=== PATIENT | male | born 1935 | race Two or more races ===

== ENCOUNTER 2020-10-23 07:40 | Inpatient (IN) | payer MEDICARE, MEDICAID ==
[~2020-10-23] VITALS: Ht 160 cm; Wt 67.2 kg
[~2020-10-23 07:40] MED LIST: CARV12.544 PO; FINA5TAB4 PO; GLIM4TAB42 PO; SITA50TA PO; SUCR1TAB; TAMS0.4C36 PO
[2020-10-23] MEDS ORDERED: PIPERACILLIN-TAZOB 3.375GM 100 ML IV ONE (08:30)
[2020-10-23 09:00] LABS: Basophils # (auto) 0 10 ^3/uL (0-0.2); Basophils % (auto) 0.2 % (0.0-2.0); Eosinophils # (auto) 0 10 ^3/uL (0-0.8); Hematocrit 29.7 % (41.0-53.0); Hemoglobin 10.2 g/dL (13.5-17.5); Lymphocytes # (auto) 0.4 10 ^3/uL (0.4-5.4); Lymphocytes % (auto) 4.5 % (10.0-50.0); Mean Corpuscular Hgb Conc. 34.2 g/dL (32.0-36.0); Mean Corpuscular Volume 93.4 fL (80.0-100.0); Monocytes # (auto) 0.4 10 ^3/uL (0-1.3); Neutrophils # (auto) 8.3 10 ^3/uL (1.6-8.6); Neutrophils % (auto) 91.3 % (37.0-80.0); Red Blood Cells 3.18 10^6/uL (4.5-5.90); Red Cell Distribution Width 14.6 % (11.8-14.3)
[2020-10-23] MEDS ORDERED: ACETAMINOPHEN 325 MG TAB PO ONE (09:15)
[2020-10-23 09:18] LABS: Albumin 2.2 g/dL (3.4-5.0); Anion Gap 9 (5-15); Blood Urea Nitrogen 35 mg/dL (7-18); Calcium 7.8 mg/dL (8.5-10.1); Carbon Dioxide 26 mmol/L (21-32); Chloride 98 mmol/L (98-107); Glucose 165 mg/dL (74-106); Potassium 3.9 mmol/L (3.5-5.1); Sodium 133 mmol/L (136-145)
[2020-10-23] MEDS ORDERED: ONDANSETRON HCL 4 MG/2 ML VIAL ONE (09:27)
[2020-10-23 09:48] LABS: BUN/Creatinine Ratio 8.8; GFR African American 19 mL/min; GFR Non-African American 15 mL/min
[2020-10-23 09:49] LABS: Alanine Aminotransferase 16 U/L (16-61); Alkaline Phosphatase 111 U/L (45-117); Aspartate Aminotransferase 11 U/L (15-37); Bilirubin, Total 1.1 mg/dL (0.2-1.0); CRP High Sensitivity > 19.0 mg/dL (< 0.3); Total Protein 6.7 g/dL (6.4-8.2)
[2020-10-23] MEDS ORDERED: MORPHINE SULF INJ 2 MG/ML SYRINGE 1ML IV PRN (13:00)
[2020-10-23] MEDS ORDERED: NITROGLYCERIN 0.4 MG SL TAB SL PRN (13:00)
[2020-10-23] MEDS ORDERED: ACETAMINOPHEN 500 MG TAB PO PRN (13:00)
[2020-10-23] MEDS: metroNIDAZOLE 500MG/100ML 100 ML IV SCH ×2 (15:54→22:29)
[2020-10-23] MEDS: TAMSULOSIN HYDROCHLORIDE 0.4 MG CAP PO SCH (19:04)
[2020-10-23] MEDS: CARVEDILOL 12.5 MG TAB PO SCH (22:28)
[2020-10-23] MEDS ORDERED: cloNIDine HCL 0.1 MG TAB PO ONE (22:45)
[2020-10-23] MEDS: ONDANSETRON HCL 4 MG/2 ML VIAL IV PRN (23:29)
[2020-10-24] VITALS (23 sets, daily range): BP systolic 78–131; BP diastolic 41–59
[2020-10-24] MEDS: metroNIDAZOLE 500MG/100ML 100 ML IV SCH ×3 (05:32→22:43)
[2020-10-24 08:11] LABS: Basophils # (auto) 0 10 ^3/uL (0-0.2); Basophils % (auto) 0.5 % (0.0-2.0); Eosinophils # (auto) 0 10 ^3/uL (0-0.8); Eosinophils % (auto) 0.2 % (0.0-7.0); Hematocrit 25.4 % (41.0-53.0); Hemoglobin 8.9 g/dL (13.5-17.5); Lymphocytes # (auto) 0.5 10 ^3/uL (0.4-5.4); Lymphocytes % (auto) 8.4 % (10.0-50.0); Mean Corpuscular Hemoglobin 32.6 pg (28.0-32.0); Mean Corpuscular Hgb Conc. 34.9 g/dL (32.0-36.0); Mean Corpuscular Volume 93.3 fL (80.0-100.0); Monocytes # (auto) 0.4 10 ^3/uL (0-1.3); Monocytes % (auto) 5.7 % (0.0-12.0); Neutrophils # (auto) 5.3 10 ^3/uL (1.6-8.6); Neutrophils % (auto) 85.2 % (37.0-80.0); Red Blood Cells 2.73 10^6/uL (4.5-5.90); Red Cell Distribution Width 14.3 % (11.8-14.3); White Blood Cell 6.2 10^3/uL (4.4-10.8)
[2020-10-24] MEDS: ONDANSETRON HCL 4 MG/2 ML VIAL IV PRN (08:19)
[2020-10-24 08:21] LABS: Albumin 1.7 g/dL (3.4-5.0); Calcium 7.4 mg/dL (8.5-10.1); Potassium 4.1 mmol/L (3.5-5.1)
[2020-10-24 08:25] LABS: BUN/Creatinine Ratio 10.1; Bilirubin, Total 0.7 mg/dL (0.2-1.0)
[2020-10-24] MEDS ORDERED: cefTRIAXone 1GM/50ML D5W 50 ML IV SCH (09:00)
[2020-10-24] MEDS ORDERED: FINASTERIDE 5 MG TAB PO SCH (10:00)
[2020-10-24] MEDS: CARVEDILOL 12.5 MG TAB PO SCH (10:40)
[2020-10-24 11:52] LABS: Urine Bacteria NONE SEEN /hpf (None Seen); Urine Blood Negative /uL (Negative); Urine Specific Gravity 1.011 (1.001-1.035); Urine WBC 2 /hpf (0 - 3)
[2020-10-24] MEDS ORDERED: LORazepam 0.5 MG TAB PO PRN (13:30)
[2020-10-24] MEDS ORDERED: SODIUM CHLORIDE 0.9% 1,000 ML IV SCH (16:45)
[2020-10-24] MEDS ORDERED: PIPERACILLIN-TAZOB 2.25GM 50 ML IV ONE (17:00)
[2020-10-24] MEDS ORDERED: DEXTROSE (50%) 50ML SYRG IV PRN (17:00)
[2020-10-24] MEDS: SODIUM CHLORIDE 0.9% 1,000 ML IV SCH (17:36)
[2020-10-24] MEDS: TAMSULOSIN HYDROCHLORIDE 0.4 MG CAP PO SCH (18:00)
[2020-10-24] MEDS: ACCU-CHEK COMFORT CURVE STRIP VI SCH (18:00)
[2020-10-24] MEDS: InsuLIN REG 1unit/0.01ml Soln (100units/ml) SC SCH (18:00)
[2020-10-24 18:54] LABS: INR 1.91 (0.9-1.15)
[2020-10-24] MEDS ORDERED: NOREPINEPHRINE 8 MG/250ML KIT 250 ML IV ONE (19:08)
[2020-10-24] MEDS: PIPERACILLIN-TAZOB 2.25GM 50 ML IV SCH (22:44)
[2020-10-24] MEDS: NOREPINEPHRINE 8 MG/250ML KIT 250 ML IV SCH (23:15)
[2020-10-25] VITALS (81 sets, daily range): BP systolic 83–136; BP diastolic 38–57
[2020-10-25] MEDS: ACCU-CHEK COMFORT CURVE STRIP VI SCH ×4 (00:04→18:00)
[2020-10-25] MEDS: InsuLIN REG 1unit/0.01ml Soln (100units/ml) SC SCH ×5 (00:06→23:58)
[2020-10-25 04:47] LABS: Hematocrit 23.6 % (41.0-53.0); Hemoglobin 8.4 g/dL (13.5-17.5); Mean Corpuscular Hemoglobin 33.3 pg (28.0-32.0); Mean Corpuscular Hgb Conc. 35.7 g/dL (32.0-36.0); Mean Corpuscular Volume 93.5 fL (80.0-100.0); Red Blood Cells 2.52 10^6/uL (4.5-5.90); Red Cell Distribution Width 14.2 % (11.8-14.3); White Blood Cell 8.3 10^3/uL (4.4-10.8)
[2020-10-25 04:55] LABS: Basophils % (manual) 0 (0.0-2.0); Blast Cells 0; Eosinophils % (manual) 0 (0-7); Monocytes % (manual) 0 (0-12); Myelocytes % 0; Promyelocytes % 0; Reactive Lymphocytes 0
[2020-10-25 04:59] LABS: INR 1.98 (0.9-1.15)
[2020-10-25 05:02] LABS: Albumin 1.5 g/dL (3.4-5.0); Calcium 6.8 mg/dL (8.5-10.1); Magnesium 2.2 mg/dL (1.6-2.6); Potassium 3.7 mmol/L (3.5-5.1)
[2020-10-25 05:06] LABS: BUN/Creatinine Ratio 10.6; Bilirubin, Total 0.4 mg/dL (0.2-1.0); Total Protein 5.4 g/dL (6.4-8.2)
[2020-10-25] MEDS: metroNIDAZOLE 500MG/100ML 100 ML IV SCH (06:09)
[2020-10-25 06:47] LABS: Band Neutrophils % (manual) 32; Lymphocytes % (manual) 8 (10.0-50.0); Metamyelocytes % 1
[2020-10-25] MEDS: PIPERACILLIN-TAZOB 2.25GM 50 ML IV SCH ×2 (07:05→22:15)
[2020-10-25] MEDS ORDERED: PANTOPRAZOLE 40 MG/10 ML VIAL INJ IV ONE (12:30)
[2020-10-25] MEDS ORDERED: PHYTONADIONE (VIT K)10 MG/ML 1ML VIAL SUBCUT ONE (16:30)
[2020-10-25] MEDS: NOREPINEPHRINE 8 MG/250ML KIT 250 ML IV SCH (23:15)
[2020-10-26] VITALS (64 sets, daily range): BP systolic 90–174; BP diastolic 42–72
[2020-10-26] MEDS: ACCU-CHEK COMFORT CURVE STRIP VI SCH ×4 (00:10→18:00)
[2020-10-26 05:19] LABS: INR 1.99 (0.9-1.15); Partial Thromboplastin Time 50.7 sec (23.0-31.2)
[2020-10-26] MEDS: PIPERACILLIN-TAZOB 2.25GM 50 ML IV SCH ×3 (06:00→22:00)
[2020-10-26] MEDS: InsuLIN REG 1unit/0.01ml Soln (100units/ml) SC SCH ×3 (06:00→18:00)
[2020-10-26 06:53] LABS: BUN/Creatinine Ratio 10.9; Potassium 3.3 mmol/L (3.5-5.1)
[2020-10-26 08:49] LABS: INR 1.72 (0.9-1.15); Partial Thromboplastin Time 45.6 sec (23.0-31.2)
[2020-10-26] MEDS ORDERED: SODIUM CHL 0.9% 1000 ML BAG XX ONE (09:15)
[2020-10-26] MEDS: MORPHINE SULF INJ 2 MG/ML SYRINGE 1ML IV PRN ×2 (09:35→20:10)
[2020-10-26 09:42] LABS: Basophils # (auto) 0 10 ^3/uL (0-0.2); Basophils % (auto) 0.2 % (0.0-2.0); Eosinophils # (auto) 0 10 ^3/uL (0-0.8); Eosinophils % (auto) 0.7 % (0.0-7.0); Hematocrit 27.5 % (41.0-53.0); Hemoglobin 9.3 g/dL (13.5-17.5); Lymphocytes # (auto) 0.6 10 ^3/uL (0.4-5.4); Lymphocytes % (auto) 8.7 % (10.0-50.0); Mean Corpuscular Hemoglobin 31.5 pg (28.0-32.0); Mean Corpuscular Hgb Conc. 33.6 g/dL (32.0-36.0); Mean Corpuscular Volume 93.9 fL (80.0-100.0); Monocytes # (auto) 0.4 10 ^3/uL (0-1.3); Monocytes % (auto) 5.8 % (0.0-12.0); Neutrophils % (auto) 84.6 % (37.0-80.0); Red Blood Cells 2.93 10^6/uL (4.5-5.90); Red Cell Distribution Width 14.5 % (11.8-14.3); White Blood Cell 7.1 10^3/uL (4.4-10.8)
[2020-10-26] MEDS ORDERED: PHYTONADIONE (VIT K)10 MG/ML 1ML VIAL SUBCUT ONE ×2 (09:45)
[2020-10-26] MEDS: PANTOPRAZOLE 40 MG/10 ML VIAL INJ IV SCH (11:10)
[2020-10-26] MEDS: SODIUM CHLORIDE 0.9% 1,000 ML IV SCH ×3 (11:23→13:11)
[2020-10-26 15:34] LABS: INR 1.36 (0.9-1.15); Partial Thromboplastin Time 40.4 sec (23.0-31.2)
[2020-10-26] MEDS ORDERED: EPOETIN ALFA-EPBX 10,000 UNIT/1ML VIAL SC ONE (21:00)
[2020-10-26 21:33] LABS: INR 1.24 (0.9-1.15); Partial Thromboplastin Time 37.7 sec (23.0-31.2)
[2020-10-26] MEDS: NOREPINEPHRINE 8 MG/250ML KIT 250 ML IV SCH (23:15)
[2020-10-27] VITALS (36 sets, daily range): BP systolic 104–175; BP diastolic 52–69
[2020-10-27] MEDS: ACCU-CHEK COMFORT CURVE STRIP VI SCH ×4 (00:11→17:58)
[2020-10-27] MEDS: hydrALAZINE HCL 20 MG/ML VL IV PRN ×2 (02:11→14:21)
[2020-10-27 05:22] LABS: INR 1.18 (0.9-1.15)
[2020-10-27] MEDS: InsuLIN REG 1unit/0.01ml Soln (100units/ml) SC SCH ×4 (06:00→17:58)
[2020-10-27] MEDS: PIPERACILLIN-TAZOB 2.25GM 50 ML IV SCH ×3 (06:26→22:51)
[2020-10-27 07:09] LABS: Basophils # (auto) 0.1 10 ^3/uL (0-0.2); Basophils % (auto) 0.7 % (0.0-2.0); Eosinophils # (auto) 0 10 ^3/uL (0-0.8); Eosinophils % (auto) 0.3 % (0.0-7.0); Hematocrit 27.5 % (41.0-53.0); Hemoglobin 9.5 g/dL (13.5-17.5); Lymphocytes # (auto) 0.8 10 ^3/uL (0.4-5.4); Mean Corpuscular Hemoglobin 32.3 pg (28.0-32.0); Mean Corpuscular Hgb Conc. 34.6 g/dL (32.0-36.0); Mean Corpuscular Volume 93.2 fL (80.0-100.0); Monocytes # (auto) 0.4 10 ^3/uL (0-1.3); Neutrophils # (auto) 6.5 10 ^3/uL (1.6-8.6); Red Blood Cells 2.95 10^6/uL (4.5-5.90); Red Cell Distribution Width 14.7 % (11.8-14.3); White Blood Cell 7.7 10^3/uL (4.4-10.8)
[2020-10-27 07:34] LABS: Albumin 1.7 g/dL (3.4-5.0); Calcium 6.9 mg/dL (8.5-10.1)
[2020-10-27 07:38] LABS: BUN/Creatinine Ratio 8.1; Bilirubin, Total 0.5 mg/dL (0.2-1.0); Total Protein 5.9 g/dL (6.4-8.2)
[2020-10-27] MEDS: SODIUM CHLORIDE 0.9% 1,000 ML IV SCH (10:49)
[2020-10-27] MEDS: PANTOPRAZOLE 40 MG/10 ML VIAL INJ IV SCH (10:53)
[2020-10-27] MEDS: NOREPINEPHRINE 8 MG/250ML KIT 250 ML IV SCH (23:15)
[2020-10-28] VITALS (56 sets, daily range): BP systolic 87–180; BP diastolic 45–74
[2020-10-28] MEDS: ACCU-CHEK COMFORT CURVE STRIP VI SCH ×5 (00:12→23:54)
[2020-10-28] MEDS: InsuLIN REG 1unit/0.01ml Soln (100units/ml) SC SCH ×5 (00:14→23:54)
[2020-10-28 04:52] LABS: Basophils # (auto) 0.1 10 ^3/uL (0-0.2); Eosinophils # (auto) 0.1 10 ^3/uL (0-0.8); Eosinophils % (auto) 0.8 % (0.0-7.0); Hematocrit 26.1 % (41.0-53.0); Hemoglobin 8.8 g/dL (13.5-17.5); Lymphocytes # (auto) 0.8 10 ^3/uL (0.4-5.4); Lymphocytes % (auto) 11.5 % (10.0-50.0); Mean Corpuscular Hemoglobin 31.7 pg (28.0-32.0); Mean Corpuscular Hgb Conc. 33.7 g/dL (32.0-36.0); Mean Corpuscular Volume 94.2 fL (80.0-100.0); Monocytes # (auto) 0.4 10 ^3/uL (0-1.3); Monocytes % (auto) 5.7 % (0.0-12.0); Neutrophils # (auto) 5.5 10 ^3/uL (1.6-8.6); Red Blood Cells 2.78 10^6/uL (4.5-5.90); Red Cell Distribution Width 14.7 % (11.8-14.3); White Blood Cell 6.8 10^3/uL (4.4-10.8)
[2020-10-28 05:02] LABS: Albumin 1.5 g/dL (3.4-5.0); Calcium 6.8 mg/dL (8.5-10.1); Potassium 3.8 mmol/L (3.5-5.1)
[2020-10-28 05:05] LABS: Bilirubin, Total 0.4 mg/dL (0.2-1.0); Total Protein 5.8 g/dL (6.4-8.2)
[2020-10-28 05:09] LABS: INR 1.05 (0.9-1.15)
[2020-10-28] MEDS: PIPERACILLIN-TAZOB 2.25GM 50 ML IV SCH ×3 (05:43→23:54)
[2020-10-28] MEDS: SODIUM CHLORIDE 0.9% 1,000 ML IV SCH ×3 (06:34→12:35)
[2020-10-28] MEDS ORDERED: LIDOCAINE W/ EPINEPHRINE 1% 20ML VIAL ONE (07:39)
[2020-10-28] MEDS ORDERED: BUPIVACAINE 0.25% INJ 50ML VIAL ONE (07:39)
[2020-10-28] MEDS ORDERED: ceFAZolin 1GM/50ML 50 ML IV ONE (08:15)
[2020-10-28] MEDS ORDERED: SUCCINYLCHOLINE CHLORIDE 20 MG/ML 10ML VIAL IV ONE ×2 (08:17→08:27)
[2020-10-28] MEDS ORDERED: fentaNYL CITRATE 100 MCG/2 ML VL ONE (08:20)
[2020-10-28] MEDS ORDERED: ROCURONIUM 10MG/ML 10ML VIAL IV ONE (08:21)
[2020-10-28] MEDS: PANTOPRAZOLE 40 MG/10 ML VIAL INJ IV SCH (08:39)
[2020-10-28] MEDS ORDERED: ONDANSETRON HCL 4 MG/2 ML VIAL ONE (08:57)
[2020-10-28] MEDS ORDERED: PROPOFOL 10 MG/ML 20 ML IV ONE (08:57)
[2020-10-28] MEDS ORDERED: METOCLOPRAMIDE HCL 5MG/ml INJ 2ml VIAL ONE (08:57)
[2020-10-28] MEDS ORDERED: ceFAZolin 1GM VL ONE (09:23)
[2020-10-28] MEDS ORDERED: metroNIDAZOLE 500MG/100ML 100 ML IV ONE (09:23)
[2020-10-28] MEDS ORDERED: SUGAMMADEX 200mg/2ml Vial (100MG/ML) IV ONE ×2 (09:28→09:36)
[2020-10-28] MEDS ORDERED: ePHEDrine SULFATE 50 MG/ML AMP IV PRN (10:00)
[2020-10-28] MEDS ORDERED: MORPHINE SULFATE 4 MG/ML SYR/VIAL IV PRN ×2 (10:00)
[2020-10-28 10:41] LABS: Basophils # (auto) 0 10 ^3/uL (0-0.2); Basophils % (auto) 0.7 % (0.0-2.0); Eosinophils # (auto) 0 10 ^3/uL (0-0.8); Eosinophils % (auto) 0.5 % (0.0-7.0); Hematocrit 23.9 % (41.0-53.0); Hemoglobin 8.2 g/dL (13.5-17.5); Lymphocytes % (auto) 15.7 % (10.0-50.0); Mean Corpuscular Hemoglobin 32.3 pg (28.0-32.0); Mean Corpuscular Hgb Conc. 34.4 g/dL (32.0-36.0); Mean Corpuscular Volume 93.8 fL (80.0-100.0); Monocytes # (auto) 0.3 10 ^3/uL (0-1.3); Monocytes % (auto) 4.3 % (0.0-12.0); Neutrophils % (auto) 78.8 % (37.0-80.0); Red Blood Cells 2.55 10^6/uL (4.5-5.90); Red Cell Distribution Width 14.7 % (11.8-14.3); White Blood Cell 6.3 10^3/uL (4.4-10.8)
[2020-10-28] MEDS: NOREPINEPHRINE 8 MG/250ML KIT 250 ML IV SCH (13:00)
[2020-10-28] MEDS: HYDROcodone-ACET 5/325MG TAB PO PRN (13:54)
[2020-10-28] MEDS: MORPHINE SULF INJ 2 MG/ML SYRINGE 1ML IV PRN (23:55)
[2020-10-29] VITALS (88 sets, daily range): BP systolic 79–166; BP diastolic 41–82
[2020-10-29] MEDS: ONDANSETRON HCL 4 MG/2 ML VIAL IV PRN ×2 (02:31→08:40)
[2020-10-29] MEDS: InsuLIN REG 1unit/0.01ml Soln (100units/ml) SC SCH ×4 (06:00→23:53)
[2020-10-29] MEDS: PIPERACILLIN-TAZOB 2.25GM 50 ML IV SCH ×3 (06:26→22:00)
[2020-10-29] MEDS: ACCU-CHEK COMFORT CURVE STRIP VI SCH ×4 (06:26→23:53)
[2020-10-29] MEDS ORDERED: dilTIAZem 25 MG/5 ML VIAL IV ONE (07:00)
[2020-10-29 08:12] LABS: Eosinophils # (auto) 0 10 ^3/uL (0-0.8); Eosinophils % (auto) 0.1 % (0.0-7.0); Lymphocytes # (auto) 0.8 10 ^3/uL (0.4-5.4); Neutrophils # (auto) 12.7 10 ^3/uL (1.6-8.6); Neutrophils % (auto) 90.8 % (37.0-80.0)
[2020-10-29 08:14] LABS: Basophils # (auto) 0 10 ^3/uL (0-0.2); Basophils % (auto) 0.2 % (0.0-2.0); Hematocrit 24.2 % (41.0-53.0); Hemoglobin 8.2 g/dL (13.5-17.5); Lymphocytes % (auto) 5.8 % (10.0-50.0); Mean Corpuscular Hemoglobin 32.3 pg (28.0-32.0); Mean Corpuscular Hgb Conc. 33.7 g/dL (32.0-36.0); Mean Corpuscular Volume 95.8 fL (80.0-100.0); Monocytes # (auto) 0.4 10 ^3/uL (0-1.3); Monocytes % (auto) 3.1 % (0.0-12.0); Nucleated Red Blood Cells % 0.1 %; Red Blood Cells 2.53 10^6/uL (4.5-5.90); Red Cell Distribution Width 15.3 % (11.8-14.3)
[2020-10-29 08:27] LABS: Albumin 1.3 g/dL (3.4-5.0); Calcium 6.9 mg/dL (8.5-10.1); Potassium 3.9 mmol/L (3.5-5.1)
[2020-10-29 08:30] LABS: BUN/Creatinine Ratio 7.8; Bilirubin, Total 0.4 mg/dL (0.2-1.0); Total Protein 5.4 g/dL (6.4-8.2)
[2020-10-29] MEDS: MORPHINE SULF INJ 2 MG/ML SYRINGE 1ML IV PRN (08:41)
[2020-10-29] MEDS: PANTOPRAZOLE 40 MG/10 ML VIAL INJ IV SCH (10:00)
[2020-10-29] MEDS ORDERED: AMIODARONE HCL 150 MG in D5W 5% 100 ML IV ONE (10:30)
[2020-10-29] MEDS ORDERED: AMIODARONE 450mg/250ml AE 250 ML IV SCH ×2 (10:45→16:45)
[2020-10-29] MEDS: SODIUM CHLORIDE 0.9% 1,000 ML IV SCH (11:41)
[2020-10-29] MEDS: metroNIDAZOLE 500MG/100ML 100 ML IV SCH ×2 (12:00→20:00)
[2020-10-29] MEDS: NOREPINEPHRINE 8 MG/250ML KIT 250 ML IV SCH (23:15)
[2020-10-30] VITALS (50 sets, daily range): BP systolic 119–161; BP diastolic 51–79
[2020-10-30] MEDS: SODIUM CHLORIDE 0.9% 1,000 ML IV SCH (01:42)
[2020-10-30] MEDS: MORPHINE SULF INJ 2 MG/ML SYRINGE 1ML IV PRN ×2 (02:42→06:02)
[2020-10-30] MEDS: metroNIDAZOLE 500MG/100ML 100 ML IV SCH ×3 (04:20→20:04)
[2020-10-30 04:46] LABS: Basophils # (auto) 0 10 ^3/uL (0-0.2); Monocytes # (auto) 0.5 10 ^3/uL (0-1.3); Neutrophils # (auto) 10.4 10 ^3/uL (1.6-8.6); White Blood Cell 12.1 10^3/uL (4.4-10.8)
[2020-10-30 04:48] LABS: Basophils % (auto) 0.3 % (0.0-2.0); Eosinophils # (auto) 0.1 10 ^3/uL (0-0.8); Eosinophils % (auto) 0.5 % (0.0-7.0); Hematocrit 21.2 % (41.0-53.0); Hemoglobin 7.1 g/dL (13.5-17.5); Lymphocytes # (auto) 1.1 10 ^3/uL (0.4-5.4); Lymphocytes % (auto) 9.3 % (10.0-50.0); Mean Corpuscular Hemoglobin 32.4 pg (28.0-32.0); Mean Corpuscular Hgb Conc. 33.3 g/dL (32.0-36.0); Mean Corpuscular Volume 97.2 fL (80.0-100.0); Monocytes % (auto) 3.8 % (0.0-12.0); Neutrophils % (auto) 86.1 % (37.0-80.0); Red Blood Cells 2.18 10^6/uL (4.5-5.90); Red Cell Distribution Width 14.9 % (11.8-14.3)
[2020-10-30 05:12] LABS: Alanine Aminotransferase < 6 U/L (16-61); Albumin 1.4 g/dL (3.4-5.0); Anion Gap 8 (5-15); Aspartate Aminotransferase 9 U/L (15-37); BUN/Creatinine Ratio 7.5; Blood Urea Nitrogen 34 mg/dL (7-18); Calcium 7.2 mg/dL (8.5-10.1); Carbon Dioxide 22 mmol/L (21-32); Chloride 110 mmol/L (98-107); GFR African American 16 mL/min; GFR Non-African American 13 mL/min; Glucose 160 mg/dL (74-106); Potassium 3.9 mmol/L (3.5-5.1); Sodium 140 mmol/L (136-145)
[2020-10-30 05:15] LABS: Alkaline Phosphatase 119 U/L (45-117); Bilirubin, Total 0.3 mg/dL (0.2-1.0); Total Protein 5.2 g/dL (6.4-8.2)
[2020-10-30] MEDS: InsuLIN REG 1unit/0.01ml Soln (100units/ml) SC SCH ×3 (06:01→17:45)
[2020-10-30] MEDS: PIPERACILLIN-TAZOB 2.25GM 50 ML IV SCH ×3 (06:01→21:44)
[2020-10-30] MEDS: ACCU-CHEK COMFORT CURVE STRIP VI SCH ×3 (06:02→17:45)
[2020-10-30] MEDS: PANTOPRAZOLE 40 MG/10 ML VIAL INJ IV SCH (09:38)
[2020-10-30] MEDS: ONDANSETRON HCL 4 MG/2 ML VIAL IV PRN (09:39)
[2020-10-30] MEDS: AMIODARONE HCL 200 MG TAB PO SCH ×2 (09:40→21:45)
[2020-10-30] MEDS ORDERED: SODIUM CHLORIDE 0.9% 1,000 ML IV SCH (11:45)
[2020-10-30] MEDS ORDERED: ONDANSETRON HCL 4 MG/2 ML VIAL IV PRN (11:45)
[2020-10-30 12:48] LABS: INR 1.09 (0.9-1.15)
[2020-10-30] MEDS ORDERED: PROMETHAZINE HCL 25 MG/ML 1ML IV PRN ×2 (14:15→15:00)
[2020-10-30] MEDS ORDERED: WARFARIN SODIUM 5 MG TAB PO ONE (17:00)
[2020-10-30] MEDS: SUCRALFATE 1 GM TAB PO SCH ×2 (17:44→21:44)
[2020-10-31] MEDS: ACCU-CHEK COMFORT CURVE STRIP VI SCH ×4 (00:15→17:34)
[2020-10-31] MEDS: InsuLIN REG 1unit/0.01ml Soln (100units/ml) SC SCH ×4 (00:25→17:34)
[2020-10-31] MEDS: hydrALAZINE HCL 20 MG/ML VL IV PRN ×2 (00:53→21:40)
[2020-10-31] MEDS: metroNIDAZOLE 500MG/100ML 100 ML IV SCH (03:54)
[2020-10-31] MEDS: PIPERACILLIN-TAZOB 2.25GM 50 ML IV SCH (05:48)
[2020-10-31 05:53] VITALS: BP 157/89
[2020-10-31 06:37] LABS: Basophils # (auto) 0 10 ^3/uL (0-0.2); Basophils % (auto) 0.1 % (0.0-2.0); Eosinophils # (auto) 0.1 10 ^3/uL (0-0.8); Eosinophils % (auto) 0.7 % (0.0-7.0); Hemoglobin 7.1 g/dL (13.5-17.5); Lymphocytes # (auto) 0.6 10 ^3/uL (0.4-5.4); Neutrophils # (auto) 10.5 10 ^3/uL (1.6-8.6)
[2020-10-31 06:39] LABS: Hematocrit 21.1 % (41.0-53.0); Mean Corpuscular Hgb Conc. 33.6 g/dL (32.0-36.0); Monocytes # (auto) 0.2 10 ^3/uL (0-1.3); Monocytes % (auto) 2.2 % (0.0-12.0); Red Blood Cells 2.23 10^6/uL (4.5-5.90); Red Cell Distribution Width 15.2 % (11.8-14.3); White Blood Cell 11.4 10^3/uL (4.4-10.8)
[2020-10-31] MEDS: SUCRALFATE 1 GM TAB PO SCH ×4 (06:40→21:40)
[2020-10-31 06:56] LABS: Albumin 1.2 g/dL (3.4-5.0); Anion Gap 7 (5-15); Blood Urea Nitrogen 37 mg/dL (7-18); Calcium 7.1 mg/dL (8.5-10.1); Carbon Dioxide 21 mmol/L (21-32); Chloride 112 mmol/L (98-107); Glucose 121 mg/dL (74-106); Magnesium 2.4 mg/dL (1.6-2.6); Sodium 140 mmol/L (136-145)
[2020-10-31 07:00] LABS: Alanine Aminotransferase < 6 U/L (16-61); Alkaline Phosphatase 124 U/L (45-117); Aspartate Aminotransferase 9 U/L (15-37); BUN/Creatinine Ratio 7.6; Bilirubin, Total 0.3 mg/dL (0.2-1.0); GFR African American 15 mL/min; GFR Non-African American 12 mL/min; Total Protein 5.6 g/dL (6.4-8.2)
[2020-10-31] MEDS ORDERED: SODIUM CHL 0.9% 1000 ML BAG XX ONE (07:00)
[2020-10-31 08:51] LABS: INR 1.18 (0.9-1.15)
[2020-10-31 09:00] VITALS: BP 139/73
[2020-10-31] MEDS: PANTOPRAZOLE 40 MG/10 ML VIAL INJ IV SCH (09:47)
[2020-10-31] MEDS: AMIODARONE HCL 200 MG TAB PO SCH ×2 (09:47→21:41)
[2020-10-31] MEDS: ERTAPENEM SOD INJ 0.5 GM in SODIUM CHL 0.9% 50 ML IV SCH (10:32)
[2020-10-31] MEDS ORDERED: ALBUMIN 25% 100 ML IV ONE (11:00)
[2020-10-31] MEDS ORDERED: ALBUMIN 25% 50 ML IV ONE (11:30)
[2020-10-31 13:00] VITALS: BP 118/68
[2020-10-31 17:00] VITALS: BP 146/71
[2020-10-31] MEDS ORDERED: WARFARIN SODIUM 2 MG TAB PO ONE (17:00)
[2020-10-31] MEDS: TAMSULOSIN HYDROCHLORIDE 0.4 MG CAP PO SCH (17:34)
[2020-10-31] MEDS ORDERED: EPOETIN ALFA-EPBX 10,000 UNIT/1ML VIAL SC ONE (21:00)
[2020-10-31 22:00] VITALS: BP 181/77
[2020-11-01] MEDS: ACCU-CHEK COMFORT CURVE STRIP VI SCH ×4 (00:19→17:59)
[2020-11-01 05:00] VITALS: BP 152/71
[2020-11-01] MEDS: InsuLIN REG 1unit/0.01ml Soln (100units/ml) SC SCH ×4 (05:47→17:59)
[2020-11-01 06:26] LABS: INR 1.51 (0.9-1.15); Partial Thromboplastin Time 43.9 sec (23.0-31.2)
[2020-11-01] MEDS: SUCRALFATE 1 GM TAB PO SCH ×4 (06:51→21:54)
[2020-11-01 07:54] LABS: Basophils # (auto) 0 10 ^3/uL (0-0.2); Basophils % (auto) 0.1 % (0.0-2.0); Hemoglobin 7.2 g/dL (13.5-17.5); Monocytes # (auto) 0.3 10 ^3/uL (0-1.3); Neutrophils # (auto) 9.5 10 ^3/uL (1.6-8.6)
[2020-11-01 07:56] LABS: Eosinophils # (auto) 0.1 10 ^3/uL (0-0.8); Eosinophils % (auto) 0.6 % (0.0-7.0); Hematocrit 21.2 % (41.0-53.0); Lymphocytes # (auto) 0.7 10 ^3/uL (0.4-5.4); Lymphocytes % (auto) 6.6 % (10.0-50.0); Mean Corpuscular Hgb Conc. 33.8 g/dL (32.0-36.0); Mean Corpuscular Volume 94.7 fL (80.0-100.0); Neutrophils % (auto) 89.7 % (37.0-80.0); Red Blood Cells 2.24 10^6/uL (4.5-5.90); Red Cell Distribution Width 15.3 % (11.8-14.3); White Blood Cell 10.6 10^3/uL (4.4-10.8)
[2020-11-01] MEDS: hydrALAZINE HCL 20 MG/ML VL IV PRN (08:42)
[2020-11-01] MEDS: ERTAPENEM SOD INJ 0.5 GM in SODIUM CHL 0.9% 50 ML IV SCH (08:43)
[2020-11-01] MEDS: PANTOPRAZOLE 40 MG/10 ML VIAL INJ IV SCH (08:43)
[2020-11-01] MEDS: AMIODARONE HCL 200 MG TAB PO SCH ×2 (08:43→21:54)
[2020-11-01 09:00] VITALS: BP 180/76
[2020-11-01] MEDS ORDERED: CARVEDILOL 12.5 MG TAB PO ONE (12:00)
[2020-11-01 13:00] VITALS: BP 121/57
[2020-11-01 17:00] VITALS: BP 140/60
[2020-11-01] MEDS ORDERED: WARFARIN SODIUM 2.5 MG TAB PO ONE (17:00)
[2020-11-01] MEDS: TAMSULOSIN HYDROCHLORIDE 0.4 MG CAP PO SCH (17:58)
[2020-11-01] MEDS: CARVEDILOL 12.5 MG TAB PO SCH (21:55)
[2020-11-01 22:00] VITALS: BP 120/62
[2020-11-02] MEDS: ACCU-CHEK COMFORT CURVE STRIP VI SCH ×4 (00:21→17:28)
[2020-11-02 05:00] VITALS: BP 150/59
[2020-11-02 05:35] LABS: Basophils # (auto) 0 10 ^3/uL (0-0.2); Eosinophils # (auto) 0 10 ^3/uL (0-0.8); Eosinophils % (auto) 0.5 % (0.0-7.0); Lymphocytes # (auto) 0.7 10 ^3/uL (0.4-5.4); Monocytes # (auto) 0.3 10 ^3/uL (0-1.3); White Blood Cell 7.6 10^3/uL (4.4-10.8)
[2020-11-02 05:38] LABS: Basophils % (auto) 0.2 % (0.0-2.0); Hematocrit 19.7 % (41.0-53.0); Lymphocytes % (auto) 9.2 % (10.0-50.0); Mean Corpuscular Hemoglobin 32.8 pg (28.0-32.0); Mean Corpuscular Hgb Conc. 34.8 g/dL (32.0-36.0); Mean Corpuscular Volume 94.4 fL (80.0-100.0); Monocytes % (auto) 3.8 % (0.0-12.0); Neutrophils # (auto) 6.5 10 ^3/uL (1.6-8.6); Neutrophils % (auto) 86.3 % (37.0-80.0); Red Blood Cells 2.09 10^6/uL (4.5-5.90); Red Cell Distribution Width 15.2 % (11.8-14.3)
[2020-11-02 05:47] LABS: INR 2.22 (0.9-1.15)
[2020-11-02 05:53] LABS: BUN/Creatinine Ratio 6.8; Calcium 7.1 mg/dL (8.5-10.1); Potassium 3.6 mmol/L (3.5-5.1)
[2020-11-02] MEDS: InsuLIN REG 1unit/0.01ml Soln (100units/ml) SC SCH ×4 (06:00→18:00)
[2020-11-02 06:20] LABS: Hemoglobin 6.9 g/dL (13.5-17.5)
[2020-11-02] MEDS: SUCRALFATE 1 GM TAB PO SCH ×4 (07:00→22:00)
[2020-11-02] MEDS ORDERED: SODIUM CHL 0.9% 1000 ML BAG XX ONE (07:00)
[2020-11-02 09:00] VITALS: BP 130/58
[2020-11-02] MEDS: PANTOPRAZOLE 40 MG/10 ML VIAL INJ IV SCH (10:35)
[2020-11-02] MEDS: AMIODARONE HCL 200 MG TAB PO SCH ×2 (10:36→22:01)
[2020-11-02] MEDS: CARVEDILOL 12.5 MG TAB PO SCH ×2 (10:36→22:00)
[2020-11-02] MEDS: ERTAPENEM SOD INJ 0.5 GM in SODIUM CHL 0.9% 50 ML IV SCH (10:37)
[2020-11-02 11:55] LABS: Hemoglobin 7.1 g/dL (13.5-17.5)
[2020-11-02 11:58] LABS: Hematocrit 20.8 % (41.0-53.0)
[2020-11-02 12:58] VITALS: BP 126/53
[2020-11-02] MEDS ORDERED: REPA0.5T5 OR (14:00)
[2020-11-02] MEDS ORDERED: BUME1TAB3 PO (14:00)
[2020-11-02] MEDS ORDERED: WARF2.5T39 PO (14:00)
[2020-11-02] MEDS ORDERED: HYDR50TA15 PO (14:00)
[2020-11-02] MEDS ORDERED: CALC667C PO (14:00)
[2020-11-02] MEDS ORDERED: AMIO200T33 PO ×2 (14:00→14:25)
[2020-11-02] MEDS ORDERED: SITA50TA PO (14:00)
[2020-11-02] MEDS ORDERED: ALBUMIN 25% 100 ML IV ONE (14:15)
[2020-11-02] MEDS ORDERED: PANT40TA2 PO (14:25)
[2020-11-02 16:12] VITALS: BP 130/58
[2020-11-02] MEDS: ALBUMIN 25% 100 ML IV SCH ×2 (16:22→16:23)
[2020-11-02 17:00] VITALS: BP 142/56
[2020-11-02] MEDS ORDERED: WARFARIN SODIUM 1 MG TAB PO ONE (17:00)
[2020-11-02] MEDS: TAMSULOSIN HYDROCHLORIDE 0.4 MG CAP PO SCH (17:28)
[2020-11-02 22:00] VITALS: BP 157/55
[2020-11-03] VITALS (9 sets, daily range): BP systolic 119–153; BP diastolic 42–76
[2020-11-03] MEDS: ACCU-CHEK COMFORT CURVE STRIP VI SCH ×4 (00:01→18:00)
[2020-11-03] MEDS: InsuLIN REG 1unit/0.01ml Soln (100units/ml) SC SCH ×4 (00:02→18:45)
[2020-11-03] MEDS: SUCRALFATE 1 GM TAB PO SCH ×4 (06:29→22:51)
[2020-11-03] MEDS: PANTOPRAZOLE 40 MG/10 ML VIAL INJ IV SCH (10:01)
[2020-11-03] MEDS: CARVEDILOL 12.5 MG TAB PO SCH ×2 (10:02→22:51)
[2020-11-03] MEDS: AMIODARONE HCL 200 MG TAB PO SCH ×2 (10:02→22:00)
[2020-11-03 10:09] LABS: Basophils # (auto) 0 10 ^3/uL (0-0.2); Basophils % (auto) 0.1 % (0.0-2.0); Eosinophils # (auto) 0 10 ^3/uL (0-0.8); Lymphocytes # (auto) 0.7 10 ^3/uL (0.4-5.4); Mean Corpuscular Hemoglobin 32.8 pg (28.0-32.0); Monocytes # (auto) 0.3 10 ^3/uL (0-1.3); Red Blood Cells 1.98 10^6/uL (4.5-5.90)
[2020-11-03 10:12] LABS: Eosinophils % (auto) 0.5 % (0.0-7.0); Hematocrit 18.9 % (41.0-53.0); Lymphocytes % (auto) 9.5 % (10.0-50.0); Mean Corpuscular Hgb Conc. 34.4 g/dL (32.0-36.0); Mean Corpuscular Volume 95.4 fL (80.0-100.0); Monocytes % (auto) 3.7 % (0.0-12.0); Neutrophils # (auto) 6.6 10 ^3/uL (1.6-8.6); Neutrophils % (auto) 86.2 % (37.0-80.0); Red Cell Distribution Width 15.1 % (11.8-14.3); White Blood Cell 7.7 10^3/uL (4.4-10.8)
[2020-11-03 10:20] LABS: Hemoglobin 6.5 g/dL (13.5-17.5)
[2020-11-03 10:26] LABS: Albumin 2.3 g/dL (3.4-5.0)
[2020-11-03 10:30] LABS: INR 2.42 (0.9-1.15)
[2020-11-03 13:38] LABS: Hemoglobin 6.5 g/dL (13.5-17.5)
[2020-11-03] MEDS ORDERED: WARFARIN SODIUM 1 MG TAB PO ONE (17:00)
[2020-11-03] MEDS: TAMSULOSIN HYDROCHLORIDE 0.4 MG CAP PO SCH (19:01)
[2020-11-03] MEDS: HYDROcodone-ACET 5/325MG TAB PO PRN (20:00)
[2020-11-04 05:00] VITALS: BP 155/71
[2020-11-04] MEDS: InsuLIN REG 1unit/0.01ml Soln (100units/ml) SC SCH ×5 (06:00→23:16)
[2020-11-04] MEDS: ACCU-CHEK COMFORT CURVE STRIP VI SCH ×5 (06:00→23:15)
[2020-11-04] MEDS: SUCRALFATE 1 GM TAB PO SCH ×4 (06:54→21:36)
[2020-11-04 08:09] LABS: Basophils # (auto) 0 10 ^3/uL (0-0.2); Basophils % (auto) 0.2 % (0.0-2.0); Eosinophils # (auto) 0 10 ^3/uL (0-0.8); Eosinophils % (auto) 0.4 % (0.0-7.0); Hematocrit 26.4 % (41.0-53.0); Hemoglobin 9.1 g/dL (13.5-17.5); Lymphocytes # (auto) 0.9 10 ^3/uL (0.4-5.4); Lymphocytes % (auto) 11.9 % (10.0-50.0); Mean Corpuscular Hemoglobin 32.1 pg (28.0-32.0); Mean Corpuscular Hgb Conc. 34.5 g/dL (32.0-36.0); Mean Corpuscular Volume 92.8 fL (80.0-100.0); Monocytes # (auto) 0.3 10 ^3/uL (0-1.3); Monocytes % (auto) 4.2 % (0.0-12.0); Neutrophils # (auto) 6.4 10 ^3/uL (1.6-8.6); Neutrophils % (auto) 83.3 % (37.0-80.0); Red Blood Cells 2.85 10^6/uL (4.5-5.90); Red Cell Distribution Width 15.7 % (11.8-14.3); White Blood Cell 7.7 10^3/uL (4.4-10.8)
[2020-11-04 08:18] LABS: INR 2.49 (0.9-1.15)
[2020-11-04 08:27] LABS: Albumin 2.1 g/dL (3.4-5.0)
[2020-11-04 09:00] VITALS: BP 108/68
[2020-11-04] MEDS: ERTAPENEM SOD INJ 0.5 GM in SODIUM CHL 0.9% 50 ML IV SCH ×2 (10:00→10:40)
[2020-11-04] MEDS: PANTOPRAZOLE 40 MG/10 ML VIAL INJ IV SCH (10:03)
[2020-11-04] MEDS: AMIODARONE HCL 200 MG TAB PO SCH ×2 (10:04→21:37)
[2020-11-04] MEDS: CARVEDILOL 12.5 MG TAB PO SCH ×2 (10:13→21:38)
[2020-11-04 13:00] VITALS: BP 103/64
[2020-11-04] MEDS ORDERED: WARFARIN SODIUM 1 MG TAB PO ONE (17:00)
[2020-11-04 17:15] VITALS: BP 106/67
[2020-11-04] MEDS: TAMSULOSIN HYDROCHLORIDE 0.4 MG CAP PO SCH (17:26)
[2020-11-04] MEDS ORDERED: EPOETIN ALFA-EPBX 10,000 UNIT/1ML VIAL IV ONE (21:00)
[2020-11-05 05:00] VITALS: BP 140/70
[2020-11-05 05:55] LABS: INR 2.32 (0.9-1.15); Partial Thromboplastin Time 52.1 sec (23.6-33.0)
[2020-11-05] MEDS: ACCU-CHEK COMFORT CURVE STRIP VI SCH ×3 (06:08→17:40)
[2020-11-05] MEDS: InsuLIN REG 1unit/0.01ml Soln (100units/ml) SC SCH ×3 (06:09→17:41)
[2020-11-05] MEDS: SUCRALFATE 1 GM TAB PO SCH ×4 (06:09→22:41)
[2020-11-05 09:00] VITALS: BP 113/43
[2020-11-05 09:10] LABS: Hematocrit 27.6 % (41.0-53.0); Hemoglobin 8.8 g/dL (13.5-17.5)
[2020-11-05] MEDS: PANTOPRAZOLE 40 MG/10 ML VIAL INJ IV SCH (10:11)
[2020-11-05] MEDS: CARVEDILOL 12.5 MG TAB PO SCH ×2 (10:14→22:00)
[2020-11-05] MEDS: AMIODARONE HCL 200 MG TAB PO SCH ×2 (10:15→22:00)
[2020-11-05] MEDS: ERTAPENEM SOD INJ 0.5 GM in SODIUM CHL 0.9% 50 ML IV SCH (10:15)
[2020-11-05 13:00] VITALS: BP 123/51
[2020-11-05 17:00] VITALS: BP 132/92
[2020-11-05] MEDS ORDERED: WARFARIN SODIUM 1 MG TAB PO ONE (17:00)
[2020-11-05] MEDS: TAMSULOSIN HYDROCHLORIDE 0.4 MG CAP PO SCH (17:26)
[2020-11-05 22:00] VITALS: BP 126/58
[2020-11-05] MEDS ORDERED: LORazepam 2MG/ML-1ML VIAL IV PRN (22:15)
[2020-11-06] MEDS: ACCU-CHEK COMFORT CURVE STRIP VI SCH ×4 (00:41→17:44)
[2020-11-06] MEDS: InsuLIN REG 1unit/0.01ml Soln (100units/ml) SC SCH ×4 (00:42→17:45)
[2020-11-06 05:00] VITALS: BP 144/108
[2020-11-06 05:54] LABS: Basophils # (auto) 0 10 ^3/uL (0-0.2); Basophils % (auto) 0.4 % (0.0-2.0); Eosinophils # (auto) 0 10 ^3/uL (0-0.8); Eosinophils % (auto) 0.6 % (0.0-7.0); Hematocrit 26.1 % (41.0-53.0); Hemoglobin 8.9 g/dL (13.5-17.5); Lymphocytes # (auto) 0.9 10 ^3/uL (0.4-5.4); Lymphocytes % (auto) 14.8 % (10.0-50.0); Mean Corpuscular Hemoglobin 31.5 pg (28.0-32.0); Mean Corpuscular Volume 92.8 fL (80.0-100.0); Monocytes # (auto) 0.3 10 ^3/uL (0-1.3); Neutrophils # (auto) 4.7 10 ^3/uL (1.6-8.6); Neutrophils % (auto) 79.2 % (37.0-80.0); Nucleated Red Blood Cells % 0.1 %; Red Blood Cells 2.81 10^6/uL (4.5-5.90); Red Cell Distribution Width 15.6 % (11.8-14.3); White Blood Cell 5.9 10^3/uL (4.4-10.8)
[2020-11-06] MEDS: SUCRALFATE 1 GM TAB PO SCH ×3 (06:06→17:00)
[2020-11-06 06:15] LABS: INR 2.34 (0.9-1.15)
[2020-11-06 06:24] LABS: Potassium 4.2 mmol/L (3.5-5.1)
[2020-11-06 06:39] LABS: Albumin 1.8 g/dL (3.4-5.0); BUN/Creatinine Ratio 5.3; Calcium 7.3 mg/dL (8.5-10.1)
[2020-11-06 06:42] LABS: Bilirubin, Total 0.3 mg/dL (0.2-1.0); Total Protein 5.9 g/dL (6.4-8.2)
[2020-11-06 09:00] VITALS: BP 144/60
[2020-11-06] MEDS: ERTAPENEM SOD INJ 0.5 GM in SODIUM CHL 0.9% 50 ML IV SCH (09:40)
[2020-11-06] MEDS: PANTOPRAZOLE 40 MG/10 ML VIAL INJ IV SCH (09:40)
[2020-11-06] MEDS: CARVEDILOL 12.5 MG TAB PO SCH (09:41)
[2020-11-06] MEDS: AMIODARONE HCL 200 MG TAB PO SCH (09:41)
[2020-11-06 12:51] VITALS: BP 139/61
[2020-11-06 16:59] VITALS: BP 128/62
[2020-11-06] MEDS ORDERED: WARFARIN SODIUM 1 MG TAB PO ONE (17:00)
[2020-11-06] MEDS: TAMSULOSIN HYDROCHLORIDE 0.4 MG CAP PO SCH (17:45)
[2020-11-07] MEDS ORDERED: SODIUM CHL 0.9% 1000 ML BAG XX ONE (07:00)
[2020-11-07] MEDS ORDERED: EPOETIN ALFA-EPBX 4,000 UNIT/ML VIAL SC ONE (21:00)
== END 2020-11-06 20:56 | disposition home health service (06) | DRG 710 ==
LOC: EDUNIT# 07:40 → EDBD 07:40 → ER 07:40 → TELE 12:52 → TELE-WESTW 10-24 15:49 → DOU IN ICU 10-24 20:15 → TELE-WESTW 10-30 14:42
PROVIDERS: ADMIT Nurse Practitioner Acute Care; ATTEND Internal Medicine
PROC: 5A1D70Z Performance of Urinary Filtration, Intermittent, Less than 6 Hours Per Day (ICD-10-PCS; 2020-10-26)
PROC: 0FT44ZZ Resection of Gallbladder, Percutaneous Endoscopic Approach (ICD-10-PCS; principal; 2020-10-28 08:19)
PROC: 05HF33Z Insertion of Infusion Device into Left Cephalic Vein, Percutaneous Approach (ICD-10-PCS; 2020-10-31)
PROC: B54NZZA Ultrasonography of Left Upper Extremity Veins, Guidance (ICD-10-PCS; 2020-10-31)
PROC: 5A1D70Z Performance of Urinary Filtration, Intermittent, Less than 6 Hours Per Day (ICD-10-PCS; 2020-10-31)
PROC: 5A1D70Z Performance of Urinary Filtration, Intermittent, Less than 6 Hours Per Day (ICD-10-PCS; 2020-11-02)
PROC: 30233N1 Transfusion of Nonautologous Red Blood Cells into Peripheral Vein, Percutaneous Approach (ICD-10-PCS; 2020-11-03)
PROC: 5A1D70Z Performance of Urinary Filtration, Intermittent, Less than 6 Hours Per Day (ICD-10-PCS; 2020-11-04)
DX: A41.9 Sepsis, unspecified organism (principal); J96.01 Acute respiratory failure with hypoxia; J91.8 Pleural effusion in other conditions classified elsewhere; I21.A1 Myocardial infarction type 2; J18.9 Pneumonia, unspecified organism; E44.0 Moderate protein-calorie malnutrition; D68.69 Other thrombophilia; K80.00 Calculus of gallbladder with acute cholecystitis without obstruction; D63.1 Anemia in chronic kidney disease; I13.2 Hypertensive heart and chronic kidney disease with heart failure and with stage 5 chronic kidney disease, or end stage renal disease; E11.21 Type 2 diabetes mellitus with diabetic nephropathy; I48.0 Paroxysmal atrial fibrillation; I50.42 Chronic combined systolic (congestive) and diastolic (congestive) heart failure; N18.6 End stage renal disease; E87.6 Hypokalemia; E86.9 Volume depletion, unspecified; K21.9 Gastro-esophageal reflux disease without esophagitis; E78.00 Pure hypercholesterolemia, unspecified; B96.20 Unspecified Escherichia coli [E. coli] as the cause of diseases classified elsewhere; Z16.12 Extended spectrum beta lactamase (ESBL) resistance; R18.8 Other ascites; T45.515A Adverse effect of anticoagulants, initial encounter; E11.22 Type 2 diabetes mellitus with diabetic chronic kidney disease; Z20.822 Contact with and (suspected) exposure to COVID-19; Z99.2 Dependence on renal dialysis; Z68.30 Body mass index [BMI] 30.0-30.9, adult; Y92.89 Other specified places as the place of occurrence of the external cause
CPT/HCPCS: 36415; 36600; 70551; 71045; 71250; 74176; 76705; 80048; 80053; 81001; 82040; 82247; 82565; 82728; 82805; 82962; 83036; 83605; 83735; 83880; 84484; 85007; 85014; 85018; 85025; 85027; 85610; 85730; 86141; 86850; 86900; 86901; 86920; 87040; 87070; 87075; 87077; 87081; 87186; 87205; 87340; 87426; 87493; 90935; 93005; 93971; 95819; 96365; 96366; 96367; 96375; 97110; 97116; 97163; 97530; C9113; G0378; J0330; J0690; J0696; J1335; J1642; J1815; J2405; J2543; J2704; J3430; J3490; J7060; P9047

== ENCOUNTER 2020-11-10 18:24 | Inpatient (IN) | payer MEDICARE, MEDICAID ==
[~2020-11-10] VITALS: Ht 165.1 cm; Wt 63.7 kg
[~2020-11-10 18:24] MED LIST changes: +AMIO200T33 PO; +BUME1TAB3 PO; +CALC667C PO; +HYDR50TA15 PO; +PANT40TA2 PO; +REPA0.5T5 OR; +WARF2.5T39 PO
[2020-11-10 20:36] LABS: Basophils # (auto) 0 10 ^3/uL (0-0.2); Basophils % (auto) 0.4 % (0.0-2.0); Eosinophils # (auto) 0 10 ^3/uL (0-0.8); Eosinophils % (auto) 0.2 % (0.0-7.0); Hematocrit 27.8 % (41.0-53.0); Hemoglobin 9.6 g/dL (13.5-17.5); Lymphocytes # (auto) 0.7 10 ^3/uL (0.4-5.4); Lymphocytes % (auto) 12.7 % (10.0-50.0); Mean Corpuscular Hemoglobin 32.2 pg (28.0-32.0); Mean Corpuscular Hgb Conc. 34.4 g/dL (32.0-36.0); Mean Corpuscular Volume 93.6 fL (80.0-100.0); Monocytes # (auto) 0.3 10 ^3/uL (0-1.3); Monocytes % (auto) 4.7 % (0.0-12.0); Neutrophils # (auto) 4.6 10 ^3/uL (1.6-8.6); Nucleated Red Blood Cells % 0.1 %; Red Blood Cells 2.97 10^6/uL (4.5-5.90); Red Cell Distribution Width 15.8 % (11.8-14.3); White Blood Cell 5.7 10^3/uL (4.4-10.8)
[2020-11-10 20:43] LABS: Albumin 1.9 g/dL (3.4-5.0); Anion Gap 7 (5-15); Blood Urea Nitrogen 28 mg/dL (7-18); Calcium 7.5 mg/dL (8.5-10.1); Carbon Dioxide 28 mmol/L (21-32); Chloride 105 mmol/L (98-107); Glucose 174 mg/dL (74-106); Magnesium 2.1 mg/dL (1.6-2.6); Potassium 3.7 mmol/L (3.5-5.1); Sodium 140 mmol/L (136-145)
[2020-11-10 20:45] LABS: BUN/Creatinine Ratio 8.2; GFR African American 22 mL/min; GFR Non-African American 18 mL/min
[2020-11-10 20:50] LABS: Alanine Aminotransferase 8 U/L (16-61); Alkaline Phosphatase 132 U/L (45-117); Aspartate Aminotransferase 14 U/L (15-37); Bilirubin, Total 0.3 mg/dL (0.2-1.0); Total Protein 6.5 g/dL (6.4-8.2)
[2020-11-10 22:52] LABS: Urine Bacteria FEW /hpf (None Seen); Urine Blood TRACE /uL (Negative); Urine Budding Yeast FEW /hpf (None Seen); Urine Specific Gravity 1.008 (1.001-1.035); Urine WBC 127 /hpf (0 - 3); Urine WBC Clumps PRESENT /hpf (None Seen)
[2020-11-10] MEDS ORDERED: DOCUSATE SOD 100 MG CAP PO PRN (23:30)
[2020-11-10] MEDS ORDERED: ACETAMINOPHEN 325 MG TAB PO PRN (23:30)
[2020-11-10] MEDS ORDERED: ONDANSETRON HCL 4 MG/2 ML VIAL IV PRN (23:30)
[2020-11-10] MEDS ORDERED: DEXTROSE (50%) 50ML SYRG IV PRN (23:30)
[2020-11-10] MEDS ORDERED: NITROGLYCERIN 0.4 MG SL TAB SL PRN (23:30)
[2020-11-10] MEDS ORDERED: cloNIDine HCL 0.1 MG TAB PO PRN (23:30)
[2020-11-10] MEDS ORDERED: MORPHINE SULFATE INJECTION 2 MG/ML SYRG IV PRN (23:30)
[2020-11-10] MEDS ORDERED: FUROSEMIDE 40 MG/4 ML VIAL IV ONE (23:30)
[2020-11-10] MEDS ORDERED: ALBUMIN 25% 50 ML IV ONE (23:30)
[2020-11-11] VITALS (7 sets, daily range): BP systolic 142–154; BP diastolic 64–75
[2020-11-11] MEDS ORDERED: hydrALAZINE HCL 20 MG/ML VL ONE (01:52)
[2020-11-11] MEDS: hydrALAZINE HCL 20 MG/ML VL IV PRN (02:06)
[2020-11-11] MEDS: SODIUM CHLOR 0.9% PF (SALINE LOCK) 10ML VIAL/SYR IV SCH ×3 (05:42→21:07)
[2020-11-11 06:10] LABS: Basophils # (auto) 0 10 ^3/uL (0-0.2); Basophils % (auto) 0.5 % (0.0-2.0); Eosinophils # (auto) 0 10 ^3/uL (0-0.8); Eosinophils % (auto) 0.3 % (0.0-7.0); Hematocrit 26.8 % (41.0-53.0); Hemoglobin 9.2 g/dL (13.5-17.5); Lymphocytes % (auto) 17.8 % (10.0-50.0); Mean Corpuscular Hemoglobin 32.3 pg (28.0-32.0); Mean Corpuscular Hgb Conc. 34.5 g/dL (32.0-36.0); Mean Corpuscular Volume 93.9 fL (80.0-100.0); Monocytes # (auto) 0.3 10 ^3/uL (0-1.3); Monocytes % (auto) 5.9 % (0.0-12.0); Neutrophils % (auto) 75.5 % (37.0-80.0); Nucleated Red Blood Cells % 0.1 %; Red Blood Cells 2.86 10^6/uL (4.5-5.90); Red Cell Distribution Width 15.4 % (11.8-14.3); White Blood Cell 5.4 10^3/uL (4.4-10.8)
[2020-11-11 06:51] LABS: Calcium 7.7 mg/dL (8.5-10.1); Potassium 3.9 mmol/L (3.5-5.1)
[2020-11-11 06:54] LABS: BUN/Creatinine Ratio 8.6; Bilirubin, Total 0.4 mg/dL (0.2-1.0); Total Protein 6.7 g/dL (6.4-8.2)
[2020-11-11] MEDS: InsuLIN REG 1unit/0.01ml Soln (100units/ml) SC SCH ×4 (06:54→22:07)
[2020-11-11] MEDS: ACCU-CHEK COMFORT CURVE STRIP VI SCH ×4 (06:54→22:06)
[2020-11-11] MEDS: ASCORBIC ACID 500 MG TAB PO SCH ×2 (10:15→21:07)
[2020-11-11] MEDS: ZINC SULFATE 220mg CAP or TAB PO SCH (10:15)
[2020-11-11] MEDS: MULTIPLE VITAMIN TAB PO SCH (10:15)
[2020-11-11] MEDS: FAMOTIDINE (10MG/ML) 2ML VL IV SCH (10:15)
[2020-11-11] MEDS: cefTRIAXone 1GM/50ML D5W 50 ML IV SCH (10:16)
[2020-11-11] MEDS: AZITHROMYCIN 500MG/ 250ML 250 ML IV SCH (10:16)
[2020-11-11] MEDS: FUROSEMIDE 40 MG/4 ML VIAL IV SCH (10:17)
[2020-11-11] MEDS: CARVEDILOL 12.5 MG TAB PO SCH ×2 (10:17→21:42)
[2020-11-11] MEDS: HEPARIN SODIUM (PORCINE) 5000 UNITS/ML 1ML VIAL SC SCH ×2 (10:18→21:41)
[2020-11-11] MEDS: TAMSULOSIN HYDROCHLORIDE 0.4 MG CAP PO SCH (18:16)
[2020-11-11] MEDS: Glucerna Carbsteady SHAKE Vanilla 8oz PO SCH ×2 (18:16→21:07)
[2020-11-11] MEDS: IPRATROPIUM BROM 0.5 MG/2.5ML INH SOL NEB PRN (23:04)
[2020-11-11] MEDS: ALBUTEROL SULF 2.5 MG/0.5ML(0.5%) NEB SOLN NEB PRN (23:05)
[2020-11-12 02:46] VITALS: BP 154/74
[2020-11-12 05:00] VITALS: BP 155/75
[2020-11-12] MEDS: Glucerna Carbsteady SHAKE Vanilla 8oz PO SCH ×4 (06:30→22:00)
[2020-11-12] MEDS: ACCU-CHEK COMFORT CURVE STRIP VI SCH ×4 (06:30→22:04)
[2020-11-12] MEDS: InsuLIN REG 1unit/0.01ml Soln (100units/ml) SC SCH ×4 (06:33→22:06)
[2020-11-12] MEDS: ALBUTEROL SULF 2.5 MG/0.5ML(0.5%) NEB SOLN NEB PRN (06:34)
[2020-11-12] MEDS: IPRATROPIUM BROM 0.5 MG/2.5ML INH SOL NEB PRN (06:34)
[2020-11-12] MEDS: SODIUM CHLOR 0.9% PF (SALINE LOCK) 10ML VIAL/SYR IV SCH ×3 (06:34→22:00)
[2020-11-12 09:00] VITALS: BP 167/89
[2020-11-12] MEDS ORDERED: HEPARIN 1,000 UNITS/ml 1ML VIAL IV ONE (10:30)
[2020-11-12] MEDS: cefTRIAXone 1GM/50ML D5W 50 ML IV SCH (11:02)
[2020-11-12] MEDS: FAMOTIDINE (10MG/ML) 2ML VL IV SCH (11:10)
[2020-11-12] MEDS: FUROSEMIDE 40 MG/4 ML VIAL IV SCH (11:10)
[2020-11-12] MEDS: ASCORBIC ACID 500 MG TAB PO SCH ×2 (11:15→21:32)
[2020-11-12] MEDS: MULTIPLE VITAMIN TAB PO SCH (11:15)
[2020-11-12] MEDS: ZINC SULFATE 220mg CAP or TAB PO SCH (11:15)
[2020-11-12] MEDS: CARVEDILOL 12.5 MG TAB PO SCH ×2 (11:15→21:32)
[2020-11-12] MEDS: HEPARIN SODIUM (PORCINE) 5000 UNITS/ML 1ML VIAL SC SCH ×2 (11:22→22:03)
[2020-11-12 12:36] VITALS: BP 146/65
[2020-11-12] MEDS: AZITHROMYCIN 500MG/ 250ML 250 ML IV SCH (12:50)
[2020-11-12 14:03] LABS: Basophils # (auto) 0 10 ^3/uL (0-0.2); Basophils % (auto) 0.8 % (0.0-2.0); Eosinophils # (auto) 0 10 ^3/uL (0-0.8); Eosinophils % (auto) 0.6 % (0.0-7.0); Hematocrit 25.3 % (41.0-53.0); Hemoglobin 8.6 g/dL (13.5-17.5); Lymphocytes % (auto) 20.9 % (10.0-50.0); Mean Corpuscular Hemoglobin 31.4 pg (28.0-32.0); Mean Corpuscular Hgb Conc. 34.1 g/dL (32.0-36.0); Mean Corpuscular Volume 92.1 fL (80.0-100.0); Monocytes # (auto) 0.3 10 ^3/uL (0-1.3); Monocytes % (auto) 6.2 % (0.0-12.0); Neutrophils # (auto) 3.3 10 ^3/uL (1.6-8.6); Neutrophils % (auto) 71.5 % (37.0-80.0); Red Blood Cells 2.75 10^6/uL (4.5-5.90); Red Cell Distribution Width 15.5 % (11.8-14.3); White Blood Cell 4.6 10^3/uL (4.4-10.8)
[2020-11-12] MEDS: HYDROcodone-ACET 5/325MG TAB PO PRN (14:09)
[2020-11-12 14:16] LABS: Albumin 1.9 g/dL (3.4-5.0); BUN/Creatinine Ratio 9.4; Calcium 7.2 mg/dL (8.5-10.1); Potassium 3.7 mmol/L (3.5-5.1)
[2020-11-12 14:18] LABS: Bilirubin, Total 0.3 mg/dL (0.2-1.0); Total Protein 6.3 g/dL (6.4-8.2)
[2020-11-12] MEDS ORDERED: FLUCONAZOLE 100 MG TAB PO ONE (14:30)
[2020-11-12] MEDS ORDERED: SODIUM CHL 0.9% 1000 ML BAG XX ONE (14:45)
[2020-11-12] MEDS: LORazepam 0.5 MG TAB PO PRN (15:35)
[2020-11-12 16:13] LABS: INR 3.59 (0.9-1.15)
[2020-11-12] MEDS: SUCRALFATE 1 GM TAB PO SCH ×2 (16:45→21:31)
[2020-11-12 16:54] VITALS: BP 143/69
[2020-11-12] MEDS: REPAGLINIDE 0.5 MG TAB PO SCH (17:50)
[2020-11-12] MEDS: CALCIUM ACETATE 667 MG CAP PO SCH (17:54)
[2020-11-12] MEDS: TAMSULOSIN HYDROCHLORIDE 0.4 MG CAP PO SCH (17:54)
[2020-11-12] MEDS ORDERED: FUROSEMIDE 40 MG/4 ML VIAL IV ONE (19:00)
[2020-11-12] MEDS ORDERED: EPOETIN ALFA-EPBX 4,000 UNIT/ML VIAL SC ONE (21:00)
[2020-11-12] MEDS: AMIODARONE HCL 200 MG TAB PO SCH (21:31)
[2020-11-12 22:00] VITALS: BP 131/63
[2020-11-12] MEDS: LOSARTAN POTASSIUM 25 MG TAB PO SCH (22:00)
[2020-11-13] VITALS (45 sets, daily range): BP systolic 63–150; BP diastolic 36–73
[2020-11-13] MEDS: ALBUTEROL SULF 2.5 MG/0.5ML(0.5%) NEB SOLN NEB PRN ×2 (01:20→10:40)
[2020-11-13] MEDS: IPRATROPIUM BROM 0.5 MG/2.5ML INH SOL NEB PRN ×2 (01:20→10:40)
[2020-11-13] MEDS: SODIUM CHLOR 0.9% PF (SALINE LOCK) 10ML VIAL/SYR IV SCH ×3 (06:00→21:58)
[2020-11-13] MEDS: FUROSEMIDE 40 MG/4 ML VIAL IV SCH ×2 (06:00→18:06)
[2020-11-13] MEDS ORDERED: FUROSEMIDE 40 MG/4 ML VIAL IV SCH (06:00)
[2020-11-13 06:11] LABS: Basophils # (auto) 0 10 ^3/uL (0-0.2); Basophils % (auto) 1.1 % (0.0-2.0); Eosinophils # (auto) 0 10 ^3/uL (0-0.8); Eosinophils % (auto) 0.5 % (0.0-7.0); Hematocrit 24.7 % (41.0-53.0); Hemoglobin 8.5 g/dL (13.5-17.5); Lymphocytes # (auto) 0.8 10 ^3/uL (0.4-5.4); Lymphocytes % (auto) 19.3 % (10.0-50.0); Mean Corpuscular Hemoglobin 31.4 pg (28.0-32.0); Mean Corpuscular Hgb Conc. 34.4 g/dL (32.0-36.0); Mean Corpuscular Volume 91.1 fL (80.0-100.0); Monocytes # (auto) 0.1 10 ^3/uL (0-1.3); Monocytes % (auto) 3.6 % (0.0-12.0); Neutrophils # (auto) 3.1 10 ^3/uL (1.6-8.6); Neutrophils % (auto) 75.5 % (37.0-80.0); Red Blood Cells 2.71 10^6/uL (4.5-5.90); Red Cell Distribution Width 15.5 % (11.8-14.3); White Blood Cell 4.1 10^3/uL (4.4-10.8)
[2020-11-13] MEDS: Glucerna Carbsteady SHAKE Vanilla 8oz PO SCH ×4 (06:12→22:00)
[2020-11-13] MEDS: REPAGLINIDE 0.5 MG TAB PO SCH ×3 (06:13→17:00)
[2020-11-13] MEDS: ACCU-CHEK COMFORT CURVE STRIP VI SCH ×4 (06:15→22:01)
[2020-11-13] MEDS: InsuLIN REG 1unit/0.01ml Soln (100units/ml) SC SCH ×4 (06:15→22:00)
[2020-11-13 06:19] LABS: INR 3.46 (0.9-1.15)
[2020-11-13 06:35] LABS: BUN/Creatinine Ratio 9.1; Calcium 7.4 mg/dL (8.5-10.1)
[2020-11-13] MEDS: SUCRALFATE 1 GM TAB PO SCH ×4 (06:58→21:58)
[2020-11-13] MEDS ORDERED: GLIMEPIRIDE 2 MG TAB PO SCH (07:00)
[2020-11-13] MEDS: cefTRIAXone 1GM/50ML D5W 50 ML IV SCH (08:38)
[2020-11-13] MEDS: CALCIUM ACETATE 667 MG CAP PO SCH ×3 (08:38→18:00)
[2020-11-13] MEDS: FAMOTIDINE (10MG/ML) 2ML VL IV SCH (10:14)
[2020-11-13] MEDS: ZINC SULFATE 220mg CAP or TAB PO SCH (10:15)
[2020-11-13] MEDS: AMIODARONE HCL 200 MG TAB PO SCH ×2 (10:15→21:58)
[2020-11-13] MEDS: AZITHROMYCIN 500MG/ 250ML 250 ML IV SCH (10:15)
[2020-11-13] MEDS: CARVEDILOL 12.5 MG TAB PO SCH ×2 (10:15→21:59)
[2020-11-13] MEDS: FLUCONAZOLE 100 MG TAB PO SCH (10:15)
[2020-11-13] MEDS: MULTIPLE VITAMIN TAB PO SCH (10:16)
[2020-11-13] MEDS: ASCORBIC ACID 500 MG TAB PO SCH ×2 (10:16→22:00)
[2020-11-13] MEDS: PANTOPRAZOLE 40 MG TAB PO SCH (10:16)
[2020-11-13] MEDS: FINASTERIDE 5 MG TAB PO SCH (10:16)
[2020-11-13] MEDS: HEPARIN SODIUM (PORCINE) 5000 UNITS/ML 1ML VIAL SC SCH ×2 (10:17→22:01)
[2020-11-13] MEDS ORDERED: EPINEPHrine HCL 250 ML IV ONE (12:51)
[2020-11-13] MEDS ORDERED: MIDAZOLAM HCL 5 MG/ML-1ML VIAL ONE (13:07)
[2020-11-13] MEDS ORDERED: MIDAZOLAM HCL 5 MG/ML-1ML VIAL IV ONE (13:15)
[2020-11-13] MEDS: fentaNYL Drip 2500mCg/250mlNS 250 ML IV SCH (13:15)
[2020-11-13] MEDS ORDERED: SODIUM BICARBONATE 8.4% INJ 50ML SYRINGE IV ONE (13:45)
[2020-11-13] MEDS ORDERED: EPINEPHrine HCL 1 MG/10 ML SYRG IV ONE (13:45)
[2020-11-13] MEDS ORDERED: NOREPINEPHRINE 8 MG/250ML KIT 250 ML IV ONE (14:02)
[2020-11-13] MEDS: NOREPINEPHRINE 8 MG/250ML KIT 250 ML IV SCH (14:15)
[2020-11-13] MEDS: MIDAZOLAM DRIP 50 mg/50mL 50 ML IV SCH (16:22)
[2020-11-13] MEDS: TAMSULOSIN HYDROCHLORIDE 0.4 MG CAP PO SCH (18:06)
[2020-11-13] MEDS: LOSARTAN POTASSIUM 25 MG TAB PO SCH (21:59)
[2020-11-14] VITALS (102 sets, daily range): BP systolic 79–154; BP diastolic 33–70
[2020-11-14] MEDS: NOREPINEPHRINE 8 MG/250ML KIT 250 ML IV SCH ×3 (02:56→17:00)
[2020-11-14 04:17] LABS: Basophils # (auto) 0.2 10 ^3/uL (0-0.2); Basophils % (auto) 1.5 % (0.0-2.0); Eosinophils # (auto) 0 10 ^3/uL (0-0.8); Eosinophils % (auto) 0.3 % (0.0-7.0); Hematocrit 29.2 % (41.0-53.0); Hemoglobin 9.8 g/dL (13.5-17.5); Lymphocytes # (auto) 2.4 10 ^3/uL (0.4-5.4); Lymphocytes % (auto) 20.8 % (10.0-50.0); Mean Corpuscular Hemoglobin 31.5 pg (28.0-32.0); Mean Corpuscular Hgb Conc. 33.7 g/dL (32.0-36.0); Mean Corpuscular Volume 93.4 fL (80.0-100.0); Monocytes # (auto) 0.3 10 ^3/uL (0-1.3); Monocytes % (auto) 2.9 % (0.0-12.0); Neutrophils # (auto) 8.4 10 ^3/uL (1.6-8.6); Neutrophils % (auto) 74.5 % (37.0-80.0); Nucleated Red Blood Cells % 0.2 %; Red Blood Cells 3.12 10^6/uL (4.5-5.90); Red Cell Distribution Width 15.7 % (11.8-14.3); White Blood Cell 11.3 10^3/uL (4.4-10.8)
[2020-11-14 04:36] LABS: INR 3.21 (0.9-1.15)
[2020-11-14 04:38] LABS: Albumin 1.7 g/dL (3.4-5.0); Calcium 7.8 mg/dL (8.5-10.1); Magnesium 2.3 mg/dL (1.6-2.6); Potassium 4.5 mmol/L (3.5-5.1)
[2020-11-14] MEDS: fentaNYL Drip 2500mCg/250mlNS 250 ML IV SCH ×2 (04:38→19:38)
[2020-11-14 04:44] LABS: Bilirubin, Total 0.4 mg/dL (0.2-1.0); Total Protein 6.8 g/dL (6.4-8.2)
[2020-11-14] MEDS: SODIUM CHLOR 0.9% PF (SALINE LOCK) 10ML VIAL/SYR IV SCH ×3 (05:02→22:00)
[2020-11-14] MEDS: SUCRALFATE 1 GM TAB PO SCH ×4 (05:03→22:00)
[2020-11-14] MEDS: REPAGLINIDE 0.5 MG TAB PO SCH ×3 (05:03→17:00)
[2020-11-14] MEDS: FUROSEMIDE 40 MG/4 ML VIAL IV SCH ×2 (05:03→17:47)
[2020-11-14] MEDS: Glucerna Carbsteady SHAKE Vanilla 8oz PO SCH ×4 (05:04→22:00)
[2020-11-14 05:05] LABS: BUN/Creatinine Ratio 8.5
[2020-11-14 05:08] LABS: CRP High Sensitivity 16.7 mg/dL (< 0.3)
[2020-11-14] MEDS: ACCU-CHEK COMFORT CURVE STRIP VI SCH ×4 (05:59→22:00)
[2020-11-14] MEDS: InsuLIN REG 1unit/0.01ml Soln (100units/ml) SC SCH ×4 (05:59→22:00)
[2020-11-14] MEDS ORDERED: SODIUM CHL 0.9% 1000 ML BAG XX ONE (07:00)
[2020-11-14] MEDS: CALCIUM ACETATE 667 MG CAP PO SCH ×3 (08:00→17:47)
[2020-11-14] MEDS ORDERED: VANCOMYCIN PER PHARMACY 0 MG IV SCH (08:45)
[2020-11-14] MEDS ORDERED: ALBUMIN 25% 50 ML IV SCH (08:45)
[2020-11-14] MEDS ORDERED: ALBUMIN 25% 100 ML IV ONE (08:47)
[2020-11-14] MEDS: VASOPRESSIN 50 UNITS in D5W 5% 247.5 ML IV SCH (09:30)
[2020-11-14] MEDS: CARVEDILOL 12.5 MG TAB PO SCH ×2 (10:00→22:00)
[2020-11-14] MEDS: AZITHROMYCIN 500MG/ 250ML 250 ML IV SCH (10:27)
[2020-11-14] MEDS: FAMOTIDINE (10MG/ML) 2ML VL IV SCH (10:38)
[2020-11-14] MEDS: ZINC SULFATE 220mg CAP or TAB PO SCH (10:39)
[2020-11-14] MEDS: ASCORBIC ACID 500 MG TAB PO SCH ×2 (10:39→22:00)
[2020-11-14] MEDS: HEPARIN SODIUM (PORCINE) 5000 UNITS/ML 1ML VIAL SC SCH (10:39)
[2020-11-14] MEDS: FLUCONAZOLE 100 MG TAB PO SCH (10:40)
[2020-11-14] MEDS: MULTIPLE VITAMIN TAB PO SCH (10:40)
[2020-11-14] MEDS: FINASTERIDE 5 MG TAB PO SCH (10:41)
[2020-11-14] MEDS: PANTOPRAZOLE 40 MG TAB PO SCH (10:41)
[2020-11-14] MEDS: AMIODARONE HCL 200 MG TAB PO SCH ×2 (10:41→22:00)
[2020-11-14] MEDS: ACETAMINOPHEN 650 MG RECT SUPP PR PRN (10:43)
[2020-11-14] MEDS: PIPERACILLIN-TAZOB 2.25GM 50 ML IV SCH ×2 (12:00→22:00)
[2020-11-14] MEDS ORDERED: VANCOMYCIN 1GM/250ML 250 ML IV SCH ×2 (12:00→15:00)
[2020-11-14] MEDS: MIDAZOLAM DRIP 50 mg/50mL 50 ML IV SCH (14:00)
[2020-11-14] MEDS: TAMSULOSIN HYDROCHLORIDE 0.4 MG CAP PO SCH (17:47)
[2020-11-14] MEDS ORDERED: EPOETIN ALFA-EPBX 4,000 UNIT/ML VIAL SC ONE (21:00)
[2020-11-14] MEDS: LOSARTAN POTASSIUM 25 MG TAB PO SCH (22:00)
[2020-11-15] VITALS (102 sets, daily range): BP systolic 66–172; BP diastolic 10–66
[2020-11-15 04:37] LABS: Hematocrit 22.1 % (41.0-53.0); Hemoglobin 7.4 g/dL (13.5-17.5); Lymphocytes # (auto) 1.3 10 ^3/uL (0.4-5.4); Monocytes # (auto) 0.2 10 ^3/uL (0-1.3)
[2020-11-15 04:39] LABS: Basophils # (auto) 0.1 10 ^3/uL (0-0.2); Basophils % (auto) 0.9 % (0.0-2.0); Eosinophils # (auto) 0.1 10 ^3/uL (0-0.8); Mean Corpuscular Hemoglobin 31.3 pg (28.0-32.0); Mean Corpuscular Hgb Conc. 33.7 g/dL (32.0-36.0); Mean Corpuscular Volume 92.9 fL (80.0-100.0); Monocytes % (auto) 2.9 % (0.0-12.0); Neutrophils # (auto) 4.5 10 ^3/uL (1.6-8.6); Neutrophils % (auto) 73.2 % (37.0-80.0); Nucleated Red Blood Cells % 0.1 %; Red Blood Cells 2.37 10^6/uL (4.5-5.90); Red Cell Distribution Width 15.2 % (11.8-14.3); White Blood Cell 6.1 10^3/uL (4.4-10.8)
[2020-11-15 04:57] LABS: Potassium 4.2 mmol/L (3.5-5.1)
[2020-11-15 05:16] LABS: Albumin 1.8 g/dL (3.4-5.0); Bilirubin, Total 0.4 mg/dL (0.2-1.0); Calcium 7.5 mg/dL (8.5-10.1); INR 3.71 (0.9-1.15); Total Protein 6.1 g/dL (6.4-8.2)
[2020-11-15 05:48] LABS: Partial Thromboplastin Time 84.2 sec (23.6-33.0)
[2020-11-15] MEDS: Glucerna Carbsteady SHAKE Vanilla 8oz PO SCH ×4 (06:00→22:00)
[2020-11-15] MEDS ORDERED: SODIUM CHL 0.9% 1000 ML BAG XX ONE (06:45)
[2020-11-15] MEDS: REPAGLINIDE 0.5 MG TAB PO SCH ×3 (07:00→17:00)
[2020-11-15] MEDS: ACCU-CHEK COMFORT CURVE STRIP VI SCH ×4 (07:00→22:06)
[2020-11-15] MEDS: SUCRALFATE 1 GM TAB PO SCH ×4 (07:00→22:05)
[2020-11-15] MEDS: InsuLIN REG 1unit/0.01ml Soln (100units/ml) SC SCH ×4 (07:00→22:21)
[2020-11-15] MEDS: CALCIUM ACETATE 667 MG CAP PO SCH ×3 (08:00→18:00)
[2020-11-15] MEDS: VASOPRESSIN 50 UNITS in D5W 5% 247.5 ML IV SCH ×2 (09:30→15:21)
[2020-11-15] MEDS: ALBUTEROL SULF 2.5 MG/0.5ML(0.5%) NEB SOLN NEB PRN (09:48)
[2020-11-15] MEDS: IPRATROPIUM BROM 0.5 MG/2.5ML INH SOL NEB PRN (09:48)
[2020-11-15] MEDS: AZITHROMYCIN 500MG/ 250ML 250 ML IV SCH (09:50)
[2020-11-15] MEDS: CARVEDILOL 12.5 MG TAB PO SCH ×2 (10:00→22:00)
[2020-11-15] MEDS: MULTIPLE VITAMIN TAB PO SCH (10:37)
[2020-11-15] MEDS: FLUCONAZOLE 100 MG TAB PO SCH (10:37)
[2020-11-15] MEDS: AMIODARONE HCL 200 MG TAB PO SCH ×2 (10:37→22:05)
[2020-11-15] MEDS: ZINC SULFATE 220mg CAP or TAB PO SCH (10:37)
[2020-11-15] MEDS: FAMOTIDINE (10MG/ML) 2ML VL IV SCH (10:37)
[2020-11-15] MEDS: PANTOPRAZOLE 40 MG TAB PO SCH (10:38)
[2020-11-15] MEDS: ASCORBIC ACID 500 MG TAB PO SCH ×2 (10:38→22:06)
[2020-11-15] MEDS: ACETAMINOPHEN 650 MG RECT SUPP PR PRN ×2 (10:38→16:55)
[2020-11-15] MEDS: FINASTERIDE 5 MG TAB PO SCH (10:39)
[2020-11-15] MEDS: fentaNYL Drip 2500mCg/250mlNS 250 ML IV SCH (11:16)
[2020-11-15] MEDS ORDERED: FLUCONAZOLE 200MG/100ML 100 ML IV SCH (11:25)
[2020-11-15] MEDS: SODIUM CHLOR 0.9% PF (SALINE LOCK) 10ML VIAL/SYR IV SCH ×2 (14:00→22:05)
[2020-11-15] MEDS: MIDAZOLAM DRIP 50 mg/50mL 50 ML IV SCH (16:00)
[2020-11-15] MEDS ORDERED: VANCOMYCIN 1GM/250ML 250 ML IV ONE (16:00)
[2020-11-15] MEDS: FUROSEMIDE 40 MG/4 ML VIAL IV SCH (17:57)
[2020-11-15] MEDS: PIPERACILLIN-TAZOB 2.25GM 50 ML IV SCH (18:00)
[2020-11-15] MEDS: TAMSULOSIN HYDROCHLORIDE 0.4 MG CAP PO SCH (18:10)
[2020-11-15] MEDS: NOREPINEPHRINE 8 MG/250ML KIT 250 ML IV SCH (19:30)
[2020-11-15] MEDS ORDERED: EPOETIN ALFA-EPBX 4,000 UNIT/ML VIAL SC ONE (21:00)
[2020-11-15] MEDS: LOSARTAN POTASSIUM 25 MG TAB PO SCH (22:00)
[2020-11-16] VITALS (101 sets, daily range): BP systolic 74–147; BP diastolic 26–82
[2020-11-16] MEDS: PIPERACILLIN-TAZOB 2.25GM 50 ML IV SCH ×3 (01:32→17:29)
[2020-11-16] MEDS: Glucerna Carbsteady SHAKE Vanilla 8oz PO SCH ×4 (04:21→21:59)
[2020-11-16] MEDS: InsuLIN REG 1unit/0.01ml Soln (100units/ml) SC SCH ×4 (05:36→22:14)
[2020-11-16] MEDS: FUROSEMIDE 40 MG/4 ML VIAL IV SCH ×2 (06:00→17:29)
[2020-11-16] MEDS: SODIUM CHLOR 0.9% PF (SALINE LOCK) 10ML VIAL/SYR IV SCH ×3 (06:00→21:58)
[2020-11-16] MEDS: fentaNYL Drip 2500mCg/250mlNS 250 ML IV SCH (06:00)
[2020-11-16] MEDS: MIDAZOLAM DRIP 50 mg/50mL 50 ML IV SCH (06:00)
[2020-11-16] MEDS: SUCRALFATE 1 GM TAB PO SCH ×4 (06:41→21:58)
[2020-11-16] MEDS: REPAGLINIDE 0.5 MG TAB PO SCH ×3 (06:41→17:00)
[2020-11-16] MEDS: ACCU-CHEK COMFORT CURVE STRIP VI SCH ×4 (06:42→22:12)
[2020-11-16] MEDS: CALCIUM ACETATE 667 MG CAP PO SCH ×3 (08:00→17:30)
[2020-11-16] MEDS ORDERED: SODIUM CHL 0.9% 1000 ML BAG XX ONE (09:15)
[2020-11-16] MEDS: ALBUMIN 25% 100 ML IV SCH ×2 (09:33→11:00)
[2020-11-16] MEDS: FINASTERIDE 5 MG TAB PO SCH (10:00)
[2020-11-16] MEDS: CARVEDILOL 12.5 MG TAB PO SCH ×2 (10:00→21:59)
[2020-11-16] MEDS: MULTIPLE VITAMIN TAB PO SCH (11:48)
[2020-11-16] MEDS: PANTOPRAZOLE 40 MG/10 ML VIAL INJ IV SCH (11:48)
[2020-11-16] MEDS: FLUCONAZOLE 200MG/100ML 100 ML IV SCH (11:49)
[2020-11-16] MEDS: ASCORBIC ACID 500 MG TAB PO SCH ×2 (11:49→22:00)
[2020-11-16] MEDS: AMIODARONE HCL 200 MG TAB PO SCH ×2 (11:49→21:58)
[2020-11-16] MEDS: ZINC SULFATE 220mg CAP or TAB PO SCH (11:49)
[2020-11-16] MEDS: AZITHROMYCIN 500MG/ 250ML 250 ML IV SCH (11:50)
[2020-11-16 15:02] LABS: INR 5.47 (0.9-1.15)
[2020-11-16] MEDS: TAMSULOSIN HYDROCHLORIDE 0.4 MG CAP PO SCH (17:29)
[2020-11-16] MEDS ORDERED: EPOETIN ALFA-EPBX 4,000 UNIT/ML VIAL SC ONE (21:00)
[2020-11-16] MEDS: LOSARTAN POTASSIUM 25 MG TAB PO SCH (21:59)
[2020-11-17] VITALS (90 sets, daily range): BP systolic 91–191; BP diastolic 44–79
[2020-11-17] MEDS: PIPERACILLIN-TAZOB 2.25GM 50 ML IV SCH ×3 (02:10→18:00)
[2020-11-17 05:14] LABS: Basophils # (auto) 0 10 ^3/uL (0-0.2); Eosinophils # (auto) 0.1 10 ^3/uL (0-0.8); Hemoglobin 7.3 g/dL (13.5-17.5); Monocytes # (auto) 0.2 10 ^3/uL (0-1.3); Red Blood Cells 2.36 10^6/uL (4.5-5.90)
[2020-11-17 05:16] LABS: Basophils % (auto) 0.6 % (0.0-2.0); Hematocrit 21.4 % (41.0-53.0); Mean Corpuscular Hemoglobin 30.8 pg (28.0-32.0); Mean Corpuscular Hgb Conc. 34.1 g/dL (32.0-36.0); Mean Corpuscular Volume 90.5 fL (80.0-100.0); Monocytes % (auto) 3.6 % (0.0-12.0); Neutrophils # (auto) 4.8 10 ^3/uL (1.6-8.6); Neutrophils % (auto) 78.8 % (37.0-80.0); Red Cell Distribution Width 15.2 % (11.8-14.3); White Blood Cell 6.1 10^3/uL (4.4-10.8)
[2020-11-17] MEDS: Glucerna Carbsteady SHAKE Vanilla 8oz PO SCH ×4 (05:29→21:33)
[2020-11-17] MEDS: SODIUM CHLOR 0.9% PF (SALINE LOCK) 10ML VIAL/SYR IV SCH ×3 (05:38→21:32)
[2020-11-17] MEDS: FUROSEMIDE 40 MG/4 ML VIAL IV SCH ×2 (05:38→18:00)
[2020-11-17 05:49] LABS: INR 6.65 (0.9-1.15)
[2020-11-17 05:50] LABS: Partial Thromboplastin Time 134.6 sec (23.6-33.0)
[2020-11-17 05:51] LABS: BUN/Creatinine Ratio 8.2; Calcium 7.8 mg/dL (8.5-10.1); Potassium 4.1 mmol/L (3.5-5.1)
[2020-11-17] MEDS: SUCRALFATE 1 GM TAB PO SCH ×4 (06:31→21:32)
[2020-11-17] MEDS: ACCU-CHEK COMFORT CURVE STRIP VI SCH ×4 (06:31→21:34)
[2020-11-17] MEDS: InsuLIN REG 1unit/0.01ml Soln (100units/ml) SC SCH ×4 (06:32→21:34)
[2020-11-17] MEDS: CALCIUM ACETATE 667 MG CAP PO SCH ×3 (08:00→17:54)
[2020-11-17] MEDS: VASOPRESSIN 50 UNITS in D5W 5% 247.5 ML IV SCH (08:01)
[2020-11-17] MEDS: FLUCONAZOLE 200MG/100ML 100 ML IV SCH (09:25)
[2020-11-17] MEDS: CARVEDILOL 12.5 MG TAB PO SCH ×2 (09:54→21:33)
[2020-11-17] MEDS: PANTOPRAZOLE 40 MG/10 ML VIAL INJ IV SCH (09:54)
[2020-11-17] MEDS: MULTIPLE VITAMIN TAB PO SCH (09:54)
[2020-11-17] MEDS: ZINC SULFATE 220mg CAP or TAB PO SCH (09:54)
[2020-11-17] MEDS: FINASTERIDE 5 MG TAB PO SCH (09:55)
[2020-11-17] MEDS: ASCORBIC ACID 500 MG TAB PO SCH ×2 (09:55→21:34)
[2020-11-17] MEDS: AMIODARONE HCL 200 MG TAB PO SCH ×2 (10:00→21:33)
[2020-11-17] MEDS: fentaNYL Drip 2500mCg/250mlNS 250 ML IV SCH (11:56)
[2020-11-17] MEDS: NOREPINEPHRINE 8 MG/250ML KIT 250 ML IV SCH (12:19)
[2020-11-17] MEDS ORDERED: PHYTONADIONE (VIT K)10 MG/ML 1ML VIAL SUBCUT ONE (13:15)
[2020-11-17] MEDS ORDERED: phytonadione 5 MG in SODIUM CHL 0.9% 50 ML IV ONE (14:15)
[2020-11-17] MEDS: MIDAZOLAM DRIP 50 mg/50mL 50 ML IV SCH (14:43)
[2020-11-17] MEDS: TAMSULOSIN HYDROCHLORIDE 0.4 MG CAP PO SCH (17:54)
[2020-11-17] MEDS: LOSARTAN POTASSIUM 25 MG TAB PO SCH (21:33)
[2020-11-17] MEDS: hydrALAZINE HCL 20 MG/ML VL IV PRN (22:32)
[2020-11-18] VITALS (74 sets, daily range): BP systolic 82–208; BP diastolic 42–78
[2020-11-18] MEDS: IPRATROPIUM BROM 0.5 MG/2.5ML INH SOL NEB PRN ×2 (00:06→06:07)
[2020-11-18] MEDS: PIPERACILLIN-TAZOB 2.25GM 50 ML IV SCH ×3 (02:00→17:44)
[2020-11-18 04:01] LABS: Basophils # (auto) 0 10 ^3/uL (0-0.2); Eosinophils # (auto) 0 10 ^3/uL (0-0.8); Hematocrit 19.9 % (41.0-53.0); Lymphocytes # (auto) 0.5 10 ^3/uL (0.4-5.4); Monocytes # (auto) 0.1 10 ^3/uL (0-1.3); Monocytes % (auto) 3.3 % (0.0-12.0); Red Blood Cells 2.23 10^6/uL (4.5-5.90); White Blood Cell 4.1 10^3/uL (4.4-10.8)
[2020-11-18 04:04] LABS: Basophils % (auto) 0.7 % (0.0-2.0); Eosinophils % (auto) 0.4 % (0.0-7.0); Lymphocytes % (auto) 13.1 % (10.0-50.0); Mean Corpuscular Hemoglobin 31.1 pg (28.0-32.0); Mean Corpuscular Hgb Conc. 34.9 g/dL (32.0-36.0); Mean Corpuscular Volume 89.1 fL (80.0-100.0); Neutrophils # (auto) 3.3 10 ^3/uL (1.6-8.6); Neutrophils % (auto) 82.5 % (37.0-80.0); Red Cell Distribution Width 15.5 % (11.8-14.3)
[2020-11-18 04:10] LABS: Hemoglobin 6.9 g/dL (13.5-17.5)
[2020-11-18 05:04] LABS: INR 1.27 (0.9-1.15); Partial Thromboplastin Time 50.7 sec (23.6-33.0)
[2020-11-18] MEDS: FUROSEMIDE 40 MG/4 ML VIAL IV SCH ×2 (05:34→17:44)
[2020-11-18] MEDS: SODIUM CHLOR 0.9% PF (SALINE LOCK) 10ML VIAL/SYR IV SCH ×3 (05:34→21:59)
[2020-11-18] MEDS: LORazepam 0.5 MG TAB PO PRN ×2 (05:35→23:47)
[2020-11-18] MEDS: Glucerna Carbsteady SHAKE Vanilla 8oz PO SCH ×4 (05:35→22:00)
[2020-11-18] MEDS ORDERED: PHYTONADIONE (VIT K)10 MG/ML 1ML VIAL IV ONE (05:45)
[2020-11-18] MEDS: ALBUTEROL SULF 2.5 MG/0.5ML(0.5%) NEB SOLN NEB PRN (06:07)
[2020-11-18] MEDS: SUCRALFATE 1 GM TAB PO SCH ×4 (06:45→21:59)
[2020-11-18] MEDS: ACCU-CHEK COMFORT CURVE STRIP VI SCH ×4 (06:45→22:01)
[2020-11-18] MEDS: InsuLIN REG 1unit/0.01ml Soln (100units/ml) SC SCH ×4 (06:46→22:00)
[2020-11-18] MEDS ORDERED: SODIUM CHL 0.9% 1000 ML BAG XX ONE (07:00)
[2020-11-18] MEDS: CALCIUM ACETATE 667 MG CAP PO SCH ×3 (08:00→17:44)
[2020-11-18] MEDS: VASOPRESSIN 50 UNITS in D5W 5% 247.5 ML IV SCH (08:37)
[2020-11-18] MEDS: hydrALAZINE HCL 20 MG/ML VL IV PRN (08:41)
[2020-11-18 08:45] LABS: Calcium 7.9 mg/dL (8.5-10.1); Potassium 4.8 mmol/L (3.5-5.1)
[2020-11-18 08:51] LABS: BUN/Creatinine Ratio 8.2
[2020-11-18] MEDS: ASCORBIC ACID 500 MG TAB PO SCH ×2 (09:55→22:00)
[2020-11-18] MEDS: FLUCONAZOLE 200MG/100ML 100 ML IV SCH (09:55)
[2020-11-18] MEDS: PANTOPRAZOLE 40 MG/10 ML VIAL INJ IV SCH ×2 (09:55→21:59)
[2020-11-18] MEDS: FINASTERIDE 5 MG TAB PO SCH (09:56)
[2020-11-18] MEDS: AMIODARONE HCL 200 MG TAB PO SCH ×2 (09:56→21:59)
[2020-11-18] MEDS: MULTIPLE VITAMIN TAB PO SCH (09:56)
[2020-11-18] MEDS: CARVEDILOL 12.5 MG TAB PO SCH ×2 (09:56→21:59)
[2020-11-18] MEDS: ZINC SULFATE 220mg CAP or TAB PO SCH (09:56)
[2020-11-18] MEDS: fentaNYL Drip 2500mCg/250mlNS 250 ML IV SCH (11:42)
[2020-11-18] MEDS ORDERED: BUMETANIDE 2.5mg/10ml (0.25 mg/ml) INJ IV ONE (12:30)
[2020-11-18 13:06] LABS: Basophils # (auto) 0 10 ^3/uL (0-0.2); Basophils % (auto) 0.4 % (0.0-2.0); Eosinophils # (auto) 0 10 ^3/uL (0-0.8); Eosinophils % (auto) 0.3 % (0.0-7.0); Hematocrit 25.6 % (41.0-53.0); Hemoglobin 8.6 g/dL (13.5-17.5); Lymphocytes # (auto) 0.6 10 ^3/uL (0.4-5.4); Lymphocytes % (auto) 12.4 % (10.0-50.0); Mean Corpuscular Hgb Conc. 33.8 g/dL (32.0-36.0); Mean Corpuscular Volume 88.8 fL (80.0-100.0); Monocytes # (auto) 0.1 10 ^3/uL (0-1.3); Monocytes % (auto) 2.8 % (0.0-12.0); Neutrophils # (auto) 3.9 10 ^3/uL (1.6-8.6); Neutrophils % (auto) 84.1 % (37.0-80.0); Nucleated Red Blood Cells % 0.1 %; Red Blood Cells 2.88 10^6/uL (4.5-5.90); Red Cell Distribution Width 14.8 % (11.8-14.3); White Blood Cell 4.7 10^3/uL (4.4-10.8)
[2020-11-18 13:18] LABS: % Iron Saturation 59.5 % (20-55)
[2020-11-18] MEDS: NOREPINEPHRINE 8 MG/250ML KIT 250 ML IV SCH (14:04)
[2020-11-18] MEDS ORDERED: NIFEdipine ER 30 MG TAB PO ONE (14:45)
[2020-11-18] MEDS: MIDAZOLAM DRIP 50 mg/50mL 50 ML IV SCH (15:27)
[2020-11-18 16:21] LABS: INR 1.08 (0.9-1.15); Partial Thromboplastin Time 45.1 sec (23.6-33.0)
[2020-11-18] MEDS ORDERED: WARFARIN SODIUM 2.5 MG TAB PO ONE (17:00)
[2020-11-18] MEDS: TAMSULOSIN HYDROCHLORIDE 0.4 MG CAP PO SCH (17:44)
[2020-11-18] MEDS ORDERED: EPOETIN ALFA-EPBX 10,000 UNIT/1ML VIAL SC ONE (21:00)
[2020-11-18] MEDS: NIFEdipine ER 30 MG TAB PO SCH (22:00)
[2020-11-18] MEDS: LOSARTAN POTASSIUM 25 MG TAB PO SCH (22:00)
[2020-11-19] VITALS (61 sets, daily range): BP systolic 120–175; BP diastolic 50–65
[2020-11-19] MEDS: PIPERACILLIN-TAZOB 2.25GM 50 ML IV SCH ×3 (01:51→18:15)
[2020-11-19 03:59] LABS: Basophils # (auto) 0 10 ^3/uL (0-0.2); Basophils % (auto) 0.4 % (0.0-2.0); Eosinophils # (auto) 0 10 ^3/uL (0-0.8); Eosinophils % (auto) 0.2 % (0.0-7.0); Hematocrit 25.2 % (41.0-53.0); Hemoglobin 8.7 g/dL (13.5-17.5); Lymphocytes # (auto) 0.5 10 ^3/uL (0.4-5.4); Lymphocytes % (auto) 12.3 % (10.0-50.0); Mean Corpuscular Hemoglobin 30.4 pg (28.0-32.0); Mean Corpuscular Hgb Conc. 34.5 g/dL (32.0-36.0); Mean Corpuscular Volume 88.3 fL (80.0-100.0); Monocytes # (auto) 0.1 10 ^3/uL (0-1.3); Monocytes % (auto) 3.4 % (0.0-12.0); Neutrophils # (auto) 3.5 10 ^3/uL (1.6-8.6); Neutrophils % (auto) 83.7 % (37.0-80.0); Red Blood Cells 2.85 10^6/uL (4.5-5.90); Red Cell Distribution Width 15.3 % (11.8-14.3); White Blood Cell 4.2 10^3/uL (4.4-10.8)
[2020-11-19 04:13] LABS: INR 1.08 (0.9-1.15); Partial Thromboplastin Time 39.5 sec (23.6-33.0)
[2020-11-19] MEDS: HYDROcodone-ACET 5/325MG TAB PO PRN (04:36)
[2020-11-19] MEDS: Glucerna Carbsteady SHAKE Vanilla 8oz PO SCH ×4 (05:50→22:56)
[2020-11-19] MEDS: SODIUM CHLOR 0.9% PF (SALINE LOCK) 10ML VIAL/SYR IV SCH ×3 (05:50→22:51)
[2020-11-19] MEDS: FUROSEMIDE 40 MG/4 ML VIAL IV SCH ×2 (05:59→18:15)
[2020-11-19] MEDS: ACCU-CHEK COMFORT CURVE STRIP VI SCH ×4 (06:16→22:00)
[2020-11-19] MEDS: InsuLIN REG 1unit/0.01ml Soln (100units/ml) SC SCH ×4 (06:29→22:00)
[2020-11-19] MEDS: SUCRALFATE 1 GM TAB PO SCH ×4 (06:29→22:54)
[2020-11-19] MEDS: CALCIUM ACETATE 667 MG CAP PO SCH ×3 (08:00→18:00)
[2020-11-19] MEDS ORDERED: VANCOMYCIN 500 MG in D5W 5% 100 ML IV ONE ×2 (09:00→14:00)
[2020-11-19] MEDS: VASOPRESSIN 50 UNITS in D5W 5% 247.5 ML IV SCH (09:25)
[2020-11-19] MEDS: FLUCONAZOLE 200MG/100ML 100 ML IV SCH (10:00)
[2020-11-19] MEDS: NIFEdipine ER 30 MG TAB PO SCH ×2 (10:00→22:00)
[2020-11-19] MEDS: ZINC SULFATE 220mg CAP or TAB PO SCH (10:00)
[2020-11-19] MEDS: PANTOPRAZOLE 40 MG/10 ML VIAL INJ IV SCH ×2 (10:00→22:50)
[2020-11-19] MEDS: FINASTERIDE 5 MG TAB PO SCH (10:00)
[2020-11-19] MEDS: AMIODARONE HCL 200 MG TAB PO SCH ×2 (10:00→22:55)
[2020-11-19] MEDS: ASCORBIC ACID 500 MG TAB PO SCH ×2 (10:01→22:57)
[2020-11-19] MEDS: MULTIPLE VITAMIN TAB PO SCH (10:01)
[2020-11-19] MEDS: CARVEDILOL 12.5 MG TAB PO SCH ×2 (10:01→21:30)
[2020-11-19] MEDS: fentaNYL Drip 2500mCg/250mlNS 250 ML IV SCH (12:27)
[2020-11-19] MEDS: NOREPINEPHRINE 8 MG/250ML KIT 250 ML IV SCH (14:15)
[2020-11-19] MEDS: MIDAZOLAM DRIP 50 mg/50mL 50 ML IV SCH (16:00)
[2020-11-19] MEDS: TAMSULOSIN HYDROCHLORIDE 0.4 MG CAP PO SCH (18:00)
[2020-11-19] MEDS: LOSARTAN POTASSIUM 25 MG TAB PO SCH (21:30)
[2020-11-20] VITALS (52 sets, daily range): BP systolic 121–180; BP diastolic 47–65
[2020-11-20] MEDS: HYDROcodone-ACET 5/325MG TAB PO PRN ×2 (01:30→20:15)
[2020-11-20] MEDS: PIPERACILLIN-TAZOB 2.25GM 50 ML IV SCH ×3 (01:36→17:57)
[2020-11-20 04:13] LABS: Basophils # (auto) 0 10 ^3/uL (0-0.2); Eosinophils # (auto) 0 10 ^3/uL (0-0.8)
[2020-11-20 04:14] LABS: Basophils % (auto) 0.5 % (0.0-2.0); Hematocrit 23.3 % (41.0-53.0); Hemoglobin 7.9 g/dL (13.5-17.5); Lymphocytes # (auto) 0.9 10 ^3/uL (0.4-5.4); Lymphocytes % (auto) 22.6 % (10.0-50.0); Mean Corpuscular Hemoglobin 30.2 pg (28.0-32.0); Mean Corpuscular Hgb Conc. 33.9 g/dL (32.0-36.0); Mean Corpuscular Volume 88.9 fL (80.0-100.0); Monocytes # (auto) 0.1 10 ^3/uL (0-1.3); Monocytes % (auto) 3.4 % (0.0-12.0); Neutrophils # (auto) 2.8 10 ^3/uL (1.6-8.6); Neutrophils % (auto) 72.5 % (37.0-80.0); Nucleated Red Blood Cells % 0.1 %; Red Blood Cells 2.62 10^6/uL (4.5-5.90); Red Cell Distribution Width 15.3 % (11.8-14.3); White Blood Cell 3.9 10^3/uL (4.4-10.8)
[2020-11-20 04:31] LABS: BUN/Creatinine Ratio 7.4; Calcium 7.5 mg/dL (8.5-10.1); Potassium 3.1 mmol/L (3.5-5.1)
[2020-11-20] MEDS ORDERED: POTASSIUM CHL 20MEQ/100ML 100 ML IV ONE ×2 (05:24→08:30)
[2020-11-20] MEDS: SODIUM CHLOR 0.9% PF (SALINE LOCK) 10ML VIAL/SYR IV SCH ×3 (05:49→22:14)
[2020-11-20] MEDS: FUROSEMIDE 40 MG/4 ML VIAL IV SCH ×2 (05:49→17:56)
[2020-11-20] MEDS: Glucerna Carbsteady SHAKE Vanilla 8oz PO SCH ×4 (05:50→22:16)
[2020-11-20] MEDS: POTASSIUM CHL 20MEQ/100ML 100 ML IV SCH ×2 (05:51→07:35)
[2020-11-20] MEDS: IPRATROPIUM BROM 0.5 MG/2.5ML INH SOL NEB PRN (06:04)
[2020-11-20] MEDS: ALBUTEROL SULF 2.5 MG/0.5ML(0.5%) NEB SOLN NEB PRN (06:04)
[2020-11-20] MEDS: InsuLIN REG 1unit/0.01ml Soln (100units/ml) SC SCH ×4 (06:33→22:00)
[2020-11-20] MEDS: SUCRALFATE 1 GM TAB PO SCH ×4 (06:33→22:15)
[2020-11-20] MEDS: ACCU-CHEK COMFORT CURVE STRIP VI SCH ×4 (06:33→22:27)
[2020-11-20] MEDS: VASOPRESSIN 50 UNITS in D5W 5% 247.5 ML IV SCH (09:21)
[2020-11-20] MEDS: NIFEdipine ER 30 MG TAB PO SCH ×2 (10:00→22:00)
[2020-11-20 10:04] LABS: Folate (Folic Acid) 9.73 ng/mL (5.38-24)
[2020-11-20] MEDS: PANTOPRAZOLE 40 MG/10 ML VIAL INJ IV SCH ×2 (10:27→22:14)
[2020-11-20] MEDS: AMIODARONE HCL 200 MG TAB PO SCH ×2 (10:28→22:18)
[2020-11-20] MEDS: MULTIPLE VITAMIN TAB PO SCH (10:28)
[2020-11-20] MEDS: CARVEDILOL 12.5 MG TAB PO SCH ×2 (10:28→22:15)
[2020-11-20] MEDS: FLUCONAZOLE 200MG/100ML 100 ML IV SCH (10:28)
[2020-11-20] MEDS: CALCIUM ACETATE 667 MG CAP PO SCH ×3 (10:28→18:22)
[2020-11-20] MEDS: ZINC SULFATE 220mg CAP or TAB PO SCH (10:28)
[2020-11-20] MEDS: FINASTERIDE 5 MG TAB PO SCH (10:29)
[2020-11-20] MEDS: ASCORBIC ACID 500 MG TAB PO SCH ×2 (10:29→22:16)
[2020-11-20] MEDS: NOREPINEPHRINE 8 MG/250ML KIT 250 ML IV SCH (14:15)
[2020-11-20] MEDS: TAMSULOSIN HYDROCHLORIDE 0.4 MG CAP PO SCH (17:57)
[2020-11-20] MEDS: hydrALAZINE HCL 20 MG/ML VL IV PRN (18:22)
[2020-11-20] MEDS: LOSARTAN POTASSIUM 25 MG TAB PO SCH (22:15)
[2020-11-21] VITALS (26 sets, daily range): BP systolic 147–189; BP diastolic 55–78
[2020-11-21] MEDS: PIPERACILLIN-TAZOB 2.25GM 50 ML IV SCH ×3 (03:03→17:36)
[2020-11-21 04:23] LABS: Basophils # (auto) 0 10 ^3/uL (0-0.2); Eosinophils # (auto) 0.1 10 ^3/uL (0-0.8); Eosinophils % (auto) 2.1 % (0.0-7.0); Hematocrit 23.9 % (41.0-53.0); Hemoglobin 8.3 g/dL (13.5-17.5); Lymphocytes # (auto) 0.8 10 ^3/uL (0.4-5.4); Lymphocytes % (auto) 24.1 % (10.0-50.0); Mean Corpuscular Hemoglobin 30.9 pg (28.0-32.0); Mean Corpuscular Hgb Conc. 34.6 g/dL (32.0-36.0); Mean Corpuscular Volume 89.3 fL (80.0-100.0); Monocytes # (auto) 0.2 10 ^3/uL (0-1.3); Monocytes % (auto) 4.9 % (0.0-12.0); Neutrophils # (auto) 2.4 10 ^3/uL (1.6-8.6); Neutrophils % (auto) 67.9 % (37.0-80.0); Nucleated Red Blood Cells % 0.1 %; Red Blood Cells 2.68 10^6/uL (4.5-5.90); Red Cell Distribution Width 15.4 % (11.8-14.3); White Blood Cell 3.5 10^3/uL (4.4-10.8)
[2020-11-21 05:10] LABS: Calcium 7.9 mg/dL (8.5-10.1); Magnesium 2.1 mg/dL (1.6-2.6); Potassium 3.8 mmol/L (3.5-5.1)
[2020-11-21 05:12] LABS: BUN/Creatinine Ratio 7.6
[2020-11-21] MEDS: FUROSEMIDE 40 MG/4 ML VIAL IV SCH ×3 (05:57→17:37)
[2020-11-21] MEDS: Glucerna Carbsteady SHAKE Vanilla 8oz PO SCH ×4 (05:58→22:09)
[2020-11-21] MEDS: SODIUM CHLOR 0.9% PF (SALINE LOCK) 10ML VIAL/SYR IV SCH ×3 (05:58→22:11)
[2020-11-21] MEDS: ACCU-CHEK COMFORT CURVE STRIP VI SCH ×4 (06:15→22:10)
[2020-11-21] MEDS: InsuLIN REG 1unit/0.01ml Soln (100units/ml) SC SCH ×4 (06:15→22:23)
[2020-11-21] MEDS: SUCRALFATE 1 GM TAB PO SCH ×4 (06:56→22:07)
[2020-11-21] MEDS: CALCIUM ACETATE 667 MG CAP PO SCH ×3 (08:00→17:37)
[2020-11-21] MEDS: VASOPRESSIN 50 UNITS in D5W 5% 247.5 ML IV SCH (09:27)
[2020-11-21] MEDS: FLUCONAZOLE 200MG/100ML 100 ML IV SCH (09:41)
[2020-11-21] MEDS: NIFEdipine ER 30 MG TAB PO SCH ×2 (10:00→22:00)
[2020-11-21] MEDS: PANTOPRAZOLE 40 MG/10 ML VIAL INJ IV SCH ×2 (10:55→22:06)
[2020-11-21] MEDS: ZINC SULFATE 220mg CAP or TAB PO SCH (10:56)
[2020-11-21] MEDS: AMIODARONE HCL 200 MG TAB PO SCH ×2 (10:56→22:06)
[2020-11-21] MEDS: CARVEDILOL 12.5 MG TAB PO SCH ×2 (10:57→22:07)
[2020-11-21] MEDS: MULTIPLE VITAMIN TAB PO SCH (10:57)
[2020-11-21] MEDS: FINASTERIDE 5 MG TAB PO SCH (10:57)
[2020-11-21] MEDS: ASCORBIC ACID 500 MG TAB PO SCH ×2 (10:57→22:07)
[2020-11-21] MEDS: hydrALAZINE HCL 20 MG/ML VL IV PRN (11:42)
[2020-11-21] MEDS ORDERED: hydrALAZINE HCL 25 MG TAB PO ONE (12:30)
[2020-11-21] MEDS: TAMSULOSIN HYDROCHLORIDE 0.4 MG CAP PO SCH (17:37)
[2020-11-21] MEDS ORDERED: hydrALAZINE HCL 25 MG TAB PO SCH (22:00)
[2020-11-21] MEDS: hydrALAZINE HCL 25 MG TAB PO SCH (22:08)
[2020-11-21] MEDS: LOSARTAN POTASSIUM 25 MG TAB PO SCH (22:09)
[2020-11-22] MEDS: PIPERACILLIN-TAZOB 2.25GM 50 ML IV SCH ×2 (01:59→02:07)
[2020-11-22 05:00] VITALS: BP 144/58
[2020-11-22 05:40] LABS: Hematocrit 25.7 % (41.0-53.0); Hemoglobin 8.8 g/dL (13.5-17.5)
[2020-11-22] MEDS: SODIUM CHLOR 0.9% PF (SALINE LOCK) 10ML VIAL/SYR IV SCH (05:50)
[2020-11-22] MEDS: FUROSEMIDE 40 MG/4 ML VIAL IV SCH (06:00)
[2020-11-22] MEDS: Glucerna Carbsteady SHAKE Vanilla 8oz PO SCH ×2 (06:00→11:30)
[2020-11-22] MEDS: ACCU-CHEK COMFORT CURVE STRIP VI SCH ×2 (06:19→11:30)
[2020-11-22] MEDS: InsuLIN REG 1unit/0.01ml Soln (100units/ml) SC SCH ×2 (06:28→11:51)
[2020-11-22] MEDS: SUCRALFATE 1 GM TAB PO SCH ×2 (06:28→11:30)
[2020-11-22] MEDS ORDERED: SODIUM CHL 0.9% 1000 ML BAG XX ONE (07:00)
[2020-11-22] MEDS: CALCIUM ACETATE 667 MG CAP PO SCH ×2 (08:00→11:31)
[2020-11-22 09:00] VITALS: BP 146/68
[2020-11-22] MEDS: hydrALAZINE HCL 25 MG TAB PO SCH ×2 (09:26→11:45)
[2020-11-22] MEDS: ZINC SULFATE 220mg CAP or TAB PO SCH (09:26)
[2020-11-22] MEDS: AMIODARONE HCL 200 MG TAB PO SCH ×2 (09:26→11:45)
[2020-11-22] MEDS: CARVEDILOL 12.5 MG TAB PO SCH ×2 (09:26→11:46)
[2020-11-22] MEDS: MULTIPLE VITAMIN TAB PO SCH (09:26)
[2020-11-22] MEDS: NIFEdipine ER 30 MG TAB PO SCH (09:27)
[2020-11-22] MEDS: ASCORBIC ACID 500 MG TAB PO SCH (09:27)
[2020-11-22] MEDS: FINASTERIDE 5 MG TAB PO SCH (09:27)
[2020-11-22] MEDS: FLUCONAZOLE 200MG/100ML 100 ML IV SCH (10:27)
[2020-11-22] MEDS: PANTOPRAZOLE 40 MG/10 ML VIAL INJ IV SCH (10:27)
[2020-11-22 13:00] VITALS: BP 172/83
[2020-11-22 13:05] VITALS: BP 172/82
[2020-11-22] MEDS ORDERED: VANCOMYCIN 500 MG in D5W 5% 100 ML IV ONE (16:00)
[2020-11-22] MEDS ORDERED: EPOETIN ALFA-EPBX 4,000 UNIT/ML VIAL SC ONE (21:00)
== END 2020-11-22 14:20 | disposition home health service (06) | DRG 130 ==
LOC: ER 18:24 → EDBD 18:24 → TELE-CENTR 23:20 → ICU WEST 11-13 13:47 → TELE-CENTR 11-21 11:50
PROVIDERS: ADMIT Nurse Practitioner Family; ATTEND Internal Medicine
PROC: 5A1D70Z Performance of Urinary Filtration, Intermittent, Less than 6 Hours Per Day (ICD-10-PCS; 2020-11-11)
PROC: 5A1955Z Respiratory Ventilation, Greater than 96 Consecutive Hours (ICD-10-PCS; 2020-11-13)
PROC: 5A1D70Z Performance of Urinary Filtration, Intermittent, Less than 6 Hours Per Day (ICD-10-PCS; 2020-11-13)
PROC: 0BH17EZ Insertion of Endotracheal Airway into Trachea, Via Natural or Artificial Opening (ICD-10-PCS; 2020-11-13)
PROC: 5A12012 Performance of Cardiac Output, Single, Manual (ICD-10-PCS; 2020-11-13)
PROC: 05HB33Z Insertion of Infusion Device into Right Basilic Vein, Percutaneous Approach (ICD-10-PCS; 2020-11-14)
PROC: B54MZZA Ultrasonography of Right Upper Extremity Veins, Guidance (ICD-10-PCS; 2020-11-14)
PROC: 5A1D70Z Performance of Urinary Filtration, Intermittent, Less than 6 Hours Per Day (ICD-10-PCS; 2020-11-14)
PROC: 5A1D70Z Performance of Urinary Filtration, Intermittent, Less than 6 Hours Per Day (ICD-10-PCS; 2020-11-16)
PROC: 30233K1 Transfusion of Nonautologous Frozen Plasma into Peripheral Vein, Percutaneous Approach (ICD-10-PCS; 2020-11-17)
PROC: 30233N1 Transfusion of Nonautologous Red Blood Cells into Peripheral Vein, Percutaneous Approach (ICD-10-PCS; 2020-11-18)
PROC: 5A1D70Z Performance of Urinary Filtration, Intermittent, Less than 6 Hours Per Day (ICD-10-PCS; 2020-11-18)
PROC: 5A1D70Z Performance of Urinary Filtration, Intermittent, Less than 6 Hours Per Day (ICD-10-PCS; principal; 2020-11-22)
DX: J96.01 Acute respiratory failure with hypoxia (principal); R65.21 Severe sepsis with septic shock; J69.0 Pneumonitis due to inhalation of food and vomit; A41.9 Sepsis, unspecified organism; I50.43 Acute on chronic combined systolic (congestive) and diastolic (congestive) heart failure; J91.8 Pleural effusion in other conditions classified elsewhere; E44.0 Moderate protein-calorie malnutrition; J18.9 Pneumonia, unspecified organism; N18.6 End stage renal disease; J44.0 Chronic obstructive pulmonary disease with (acute) lower respiratory infection; J44.1 Chronic obstructive pulmonary disease with (acute) exacerbation; E11.65 Type 2 diabetes mellitus with hyperglycemia; E78.5 Hyperlipidemia, unspecified; J98.11 Atelectasis; N39.0 Urinary tract infection, site not specified; K21.9 Gastro-esophageal reflux disease without esophagitis; E78.00 Pure hypercholesterolemia, unspecified; N40.0 Benign prostatic hyperplasia without lower urinary tract symptoms; D63.1 Anemia in chronic kidney disease; E11.22 Type 2 diabetes mellitus with diabetic chronic kidney disease; I13.2 Hypertensive heart and chronic kidney disease with heart failure and with stage 5 chronic kidney disease, or end stage renal disease; Z20.822 Contact with and (suspected) exposure to COVID-19; E11.21 Type 2 diabetes mellitus with diabetic nephropathy; Z99.2 Dependence on renal dialysis; Z90.49 Acquired absence of other specified parts of digestive tract; Z79.01 Long term (current) use of anticoagulants; Z68.23 Body mass index [BMI] 23.0-23.9, adult
CPT/HCPCS: 36415; 36600; 71045; 74176; 80048; 80053; 80202; 81001; 82270; 82565; 82607; 82668; 82728; 82746; 82805; 82962; 83540; 83550; 83615; 83735; 83880; 84100; 84443; 84484; 85014; 85018; 85025; 85045; 85610; 85730; 86141; 86850; 86900; 86901; 86920; 87040; 87070; 87081; 87086; 87088; 87205; 87426; 90935; 92610; 92950; 93005; 93971; 94002; 94003; 94640; 96365; 96375; 97163; C9113; G0378; J0171; J0696; J1450; J1642; J1815; J2250; J2543; J3430; J3480; J3490; J7060; P9047